=== PATIENT | female | born 1955 | race Hispanic/Latino ===

== ENCOUNTER 2020-09-29 16:19 | Emergency (ER) | payer MEDICAID ==
[2020-09-29] MEDS ORDERED: HYDROcodone/ACETAMINOPHEN 5-325 MG TAB PO ONE (16:47)
[2020-09-29] MEDS ORDERED: TETANUS,DIPH,PERTUSS(ACELL) VACCINE 0.5 ML SYRINGE IM ONE (16:52)
[2020-09-29] MEDS ORDERED: SODIUM CHLORIDE 0.9% 1000 ML 1,000 ML IV ONE ×2 (16:52→19:57)
--- NOTE | 2020-09-29 16:52 | Emergency Department Report ---
ED Alcohol HPI - General Stated Complaint: FALL Time Seen by Provider: 09/29/20 16:46 Source: patient, EMS, old records reviewed Mode of arrival: Ambulatory Limitations: No Limitations - History of Present Illness Initial Comments: CC: recurrent falls HPI: This is a 65 yo female with hx of anemia, chronic pain and alcohol dependence who presents with recurrent falls and skin tears due to alcohol intoxication. Roommate of patient called EMS. Patient states that she is hung ry. She also feels that she needs a blood transfusion. She has multiple skin tears on forearm. Bleeding controlled with bandage. Patient also has history of COPD nicotine dependence, hypertension, according to myocardial perfusion scan performed 2013, patient had ejection fraction 63% with normal left ventricular systolic function MD Complaint: alcohol intoxication Last Drink: just [employer] Chronic Alcohol Use: Yes Recent Trauma: Yes Associated Symptoms: denies other symptoms Treatments Prior to Arrival: other (EMS transport, bandage) - Related Data Home Medications Medication Instructions Recorded Confirmed Last Taken hydrOXYzine PAMOATE (NF) [Vistaril 25 mg PO BID 09/17/13 08/01/14 09/17/13 (Nf)] Previous Rx's Medication Instructions Recorded Last Taken Type Albuterol Mdi (or & Nicu Only) 2 puff IH QID PRN 30 Days 08/02/14 Unknown Rx [ProAir HFA Inhaler] inhalation Prednisone [Prednisone 10 mg 10 mg PO .TAPER #1 tab.ds.pk 08/02/14 Unknown Rx (6-Day Pack, 21 Tabs)] levoFLOXacin [Levaquin] 750 mg PO QDAY #3 tablet 08/02/14 Unknown Rx Allergies Allergy/AdvReac Type Severity Reaction Status Date / Time ibuprofen [From Motrin] Allergy Rash Verified 09/17/13 17:44 Penicillins Allergy Rash Verified 09/17/13 17:44 sulfamethoxazole Allergy Rash Verified 08/01/14 03:12 [From Bactrim] trimethoprim [From Bactrim] Allergy Rash Verified 08/01/14 03:12 ED Review of Systems ROS: Stated complaint: FALL Other details as noted in HPI Comment: All other systems reviewed and negative Constitutional: denies: fever, malaise Respiratory: denies: cough, shortness of breath Gastrointestinal: denies: abdominal pain, nausea, vomiting Skin: lesions ED Past Medical Hx - Past Medical History Previous Medical History?: Yes Hx Hypertension: Yes Hx Heart Attack/AMI: No Hx Congestive Heart Failure: No Hx Diabetes: Yes Hx Deep Vein Thrombosis: No Hx Pulmonary Embolism: No Hx Liver Disease: No Hx Renal Disease: No Hx Sickle Cell Disease: No Hx Arthritis: No Hx Seizures: No Hx Kidney Stones: No Hx Psychiatric Treatment: Yes Hx Asthma: Yes Hx COPD: Yes Hx Tuberculosis: No Hx Dementia: No Hx HIV: No Additional medical history: History of PUD. History of anemia on recent old records. History of hyponatremia on recent old records - Surgical History Past Surgical History?: Yes Hx Coronary Stent: No Hx Open Heart Surgery: No Hx Pacemaker: No Hx Internal Defibrillator: No Hx Cholecystectomy: No Hx Appendectomy: No Hx Breast Surgery: No Additional Surgical History: lt knee surgery,rt foot surgery,TONSILECTOMY - Social History Smoking Status: Current Every Day Smoker Substance Use Type: Alcohol - Medications Home Medications: Home Medications Medication Instructions Recorded Confirmed Last Taken Type hydrOXYzine PAMOATE (NF) [Vistaril 25 mg PO BID 09/17/13 08/01/14 09/17/13 History (Nf)] Albuterol Mdi (or & Nicu Only) 2 puff IH QID PRN 30 Days 08/02/14 Unknown Rx [ProAir HFA Inhaler] inhalation Prednisone [Prednisone 10 mg 10 mg PO .TAPER #1 tab.ds.pk 08/02/14 Unknown Rx (6-Day Pack, 21 Tabs)] levoFLOXacin [Levaquin] 750 mg PO QDAY #3 tablet 08/02/14 Unknown Rx ED Physical Exam - General Limitations: No Limitations General appearance: alert, appears intoxicated, other (staggering gait) - Head Head exam: Present: atraumatic, normocephalic - Eye Eye exam: Present: normal appearance. Absent: scleral icterus, conjunctival injection - ENT ENT exam: Present: mucous membranes moist - Neck Neck exam: Present: normal inspection, full ROM - Respiratory Respiratory exam: Present: normal lung sounds bilaterally. Absent: respiratory distress, wheezes, rales, rhonchi - Cardiovascular Cardiovascular Exam: Present: regular rate, normal rhythm, normal heart sounds. Absent: systolic murmur, diastolic murmur, rubs, gallop - GI/Abdominal GI/Abdominal exam: Present: soft, normal bowel sounds. Absent: distended, tenderness, guarding, rebound - Extremities Exam Extremities exam: Present: normal inspection - Neurological Exam Neurological exam: Present: alert, oriented X3 - Psychiatric Psychiatric exam: Present: other (labile mood, slightly agitated, semi- cooperative) - Skin Skin exam: Present: warm, dry, normal color, other (several skin tears bilateral forearms). Absent: rash ED Course Vital Signs 09/29/20 09/29/20 09/29/20 17:32 19:35 23:00 Temperature 97.5 F L 97.7 F Pulse Rate 75 106 H Respiratory 18 18 18 Rate Blood Pressure 149/82 Blood Pressure 149/86 [Left] O2 Sat by Pulse 95 Oximetry ED Medical Decision Making - Lab Data Result diagrams: 09/29/20 16:47 09/29/20 16:47 - Medical Decision Making 1. Acute alcohol intoxication leading to recurrent falls: Blood alcohol level markedly elevated 0.33 at 18 hours observation patient is lucid alert. Patient has steady gait upon arrival in spite significant intoxication. 2. Multiple skin tears due to falls: Bandages were applied per nursing staff. Patient also received Tdap booster. chemistry otherwise unremarkable. CBC revealed mild leukopenia and anemia, possibly indicative of early liver disease. Patient given referral to outpatient medicine physician Critical care attestation.: If time is entered above; I have spent that time in minutes in the direct care of this critically ill patient, excluding procedure time. ED Disposition Clinical Impression: Alcohol intoxication, Skin avulsion Disposition: [id number] TO HOME OR SELFCARE Is pt being admited?: No Does the pt Need Aspirin: No Condition: Stable Instructions: Alcohol Abuse and Dependence Information, Adult Referrals: LUCIA BUENO MD [Staff Physician] - 3-5 Days
[2020-09-29 18:15] LABS: Basophils % (Auto) 1.1 % (0.0-1.8); Eosinophils % (Auto) 0.8 % (0.0-4.3); Hemoglobin 9.2 gm/dl (10.1-14.3); Lymphocytes % (Auto) 35.9 % (13.4-35.0); Mean Corpuscular HGB Conc 32 % (30-34); Mean Corpuscular Volume 87 fl (79-97); Monocytes # (Auto) 0.4 K/mm3 (0.0-0.8); Monocytes % (Auto) 15.4 % (0.0-7.3); Platelet Count 250 K/mm3 (140-440); Red Blood Count 3.32 M/mm3 (3.65-5.03); Red Cell Distribution Width 18.8 % (13.2-15.2)
[2020-09-29 18:27] LABS: BUN/Creatinine Ratio 18; Blood Urea Nitrogen 16 mg/dL (7-17); Calcium 8.9 mg/dL (8.4-10.2); Hemolysis Index 13
[2020-09-30 04:23] VITALS: BP 146/98
== END 2020-10-01 12:09 | disposition home or self-care (01) ==
LOC: ED 16:19
DX: T14.8XXA Other injury of unspecified body region, initial encounter (principal); F10.129 Alcohol abuse with intoxication, unspecified; I10 Essential (primary) hypertension; E11.9 Type 2 diabetes mellitus without complications; J45.909 Unspecified asthma, uncomplicated; F17.200 Nicotine dependence, unspecified, uncomplicated; Z79.899 Other long term (current) drug therapy; X58.XXXA Exposure to other specified factors, initial encounter; Y93.89 Activity, other specified; Y92.89 Other specified places as the place of occurrence of the external cause; Y99.8 Other external cause status
CPT/HCPCS: 36415; 80048; 85025; 90471; 90715; 96360; 96361; 99285; J7030; 80320; G0480

== ENCOUNTER 2020-11-05 03:03 | Emergency (ER) | payer MEDICAID ==
[2020-11-05 03:12] VITALS: BP 154/95
[2020-11-05] MEDS ORDERED: ACETAMINOPHEN 500 MG TAB PO ONE (04:55)
--- NOTE | 2020-11-05 05:08 | Emergency Department Report ---
ED General Adult HPI - General Chief complaint: Sore Throat Stated complaint: SORE THROAT Time Seen by Provider: 11/05/20 03:56 Source: patient, EMS Mode of arrival: Ambulatory Limitations: No Limitations - History of Present Illness Initial comments: Patient is a 65-year-old female who presents for sore throat x3 weeks. Patient denies fevers chills no nausea vomiting no dizziness no difficulty eating or swallowing. Patient states pain is described at 5/10 itchy scratchy symptoms are relieved by nothing tried symptoms are exacerbated by nothing. - Related Data Home Medications Medication Instructions Recorded Confirmed Last Taken hydrOXYzine PAMOATE (NF) [Vistaril 25 mg PO BID 09/17/13 08/01/14 09/17/13 (Nf)] Previous Rx's Medication Instructions Recorded Last Taken Type Albuterol Mdi (or & Nicu Only) 2 puff IH QID PRN 30 Days 08/02/14 Unknown Rx [ProAir HFA Inhaler] inhalation Prednisone [Prednisone 10 mg 10 mg PO .TAPER #1 tab.ds.pk 08/02/14 Unknown Rx (6-Day Pack, 21 Tabs)] levoFLOXacin [Levaquin] 750 mg PO QDAY #3 tablet 08/02/14 Unknown Rx Acetaminophen [Tylenol] 325 mg PO Q6H PRN #30 capsule 11/05/20 Unknown Rx Azithromycin [Zithromax TAB] 250 mg PO QDAY #5 tablet 11/05/20 Unknown Rx Allergies Allergy/AdvReac Type Severity Reaction Status Date / Time ibuprofen [From Motrin] Allergy Rash Verified 09/17/13 17:44 Penicillins Allergy Rash Verified 09/17/13 17:44 sulfamethoxazole Allergy Rash Verified 08/01/14 03:12 [From Bactrim] trimethoprim [From Bactrim] Allergy Rash Verified 08/01/14 03:12 ED Review of Systems ROS: Stated complaint: SORE THROAT Other details as noted in HPI Constitutional: denies: chills, fever Eyes: denies: eye pain, eye discharge, vision change ENT: throat pain, congestion Respiratory: denies: cough, shortness of breath, wheezing Cardiovascular: denies: chest pain, palpitations Endocrine: no symptoms reported Gastrointestinal: denies: abdominal pain, nausea, diarrhea Genitourinary: denies: urgency, dysuria, discharge Musculoskeletal: denies: back pain, joint swelling, arthralgia Skin: denies: rash, lesions Neurological: denies: headache, weakness, paresthesias Psychiatric: denies: anxiety, depression Hematological/Lymphatic: as per HPI ED Past Medical Hx - Past Medical History Previous Medical History?: Yes Hx Hypertension: Yes Hx Heart Attack/AMI: No Hx Congestive Heart Failure: No Hx Diabetes: Yes Hx Deep Vein Thrombosis: No Hx Pulmonary Embolism: No Hx Liver Disease: No Hx Renal Disease: No Hx Sickle Cell Disease: Yes Hx Arthritis: No Hx Seizures: No Hx Kidney Stones: No Hx Psychiatric Treatment: Yes Hx Asthma: Yes Hx COPD: Yes Hx Tuberculosis: No Hx Dementia: No Hx HIV: No Additional medical history: History of PUD. History of anemia on recent old records. History of hyponatremia on recent old records - Surgical History Past Surgical History?: Yes Hx Coronary Stent: No Hx Open Heart Surgery: No Hx Pacemaker: No Hx Internal Defibrillator: No Hx Cholecystectomy: No Hx Appendectomy: No Hx Breast Surgery: No Additional Surgical History: lt knee surgery,rt foot surgery,TONSILECTOMY - Social History Smoking Status: Current Every Day Smoker Substance Use Type: Alcohol - Medications Home Medications: Home Medications Medication Instructions Recorded Confirmed Last Taken Type hydrOXYzine PAMOATE (NF) [Vistaril 25 mg PO BID 09/17/13 08/01/14 09/17/13 History (Nf)] Albuterol Mdi (or & Nicu Only) 2 puff IH QID PRN 30 Days 08/02/14 Unknown Rx [ProAir HFA Inhaler] inhalation Prednisone [Prednisone 10 mg 10 mg PO .TAPER #1 tab.ds.pk 08/02/14 Unknown Rx (6-Day Pack, 21 Tabs)] levoFLOXacin [Levaquin] 750 mg PO QDAY #3 tablet 08/02/14 Unknown Rx Acetaminophen [Tylenol] 325 mg PO Q6H PRN #30 capsule 11/05/20 Unknown Rx Azithromycin [Zithromax TAB] 250 mg PO QDAY #5 tablet 11/05/20 Unknown Rx ED Physical Exam - General Limitations: No Limitations General appearance: alert, in no apparent distress - Head Head exam: Present: atraumatic, normocephalic - Eye Eye exam: Present: normal appearance, PERRL, EOMI Pupils: Present: normal accommodation - ENT ENT exam: Present: normal orophraynx, mucous membranes moist, TM's normal bilaterally, normal external ear exam - Expanded ENT Exam Expanded Ear exam: Present: normal external inspection Mouth exam: Present: normal external inspection Teeth exam: Present: normal inspection Throat exam: Negative: tonsillar erythema, tonsillomegaly, tonsillar exudate, R peritonsillar mass, L peritonsillar mass - Neck Neck exam: Present: normal inspection, full ROM, lymphadenopathy. Absent: tenderness, meningismus, thyromegaly - Expanded Neck Exam Expanded Neck exam: Present: tenderness. Absent: midline deformity - Respiratory Respiratory exam: Present: normal lung sounds bilaterally. Absent: respiratory distress, wheezes, stridor, chest wall tenderness - Cardiovascular Cardiovascular Exam: Present: regular rate, normal rhythm, normal heart sounds. Absent: systolic murmur, diastolic murmur, rubs, gallop - GI/Abdominal GI/Abdominal exam: Present: soft, normal bowel sounds - Rectal Rectal exam: Present: deferred - Extremities Exam Extremities exam: Present: normal inspection, full ROM, normal capillary refill. Absent: tenderness - Back Exam Back exam: Present: normal inspection - Neurological Exam Neurological exam: Present: alert, oriented X3, CN II-XII intact, normal gait - Psychiatric Psychiatric exam: Present: normal affect, normal mood - Skin Skin exam: Present: warm, dry, intact, normal color. Absent: rash ED Course Vital Signs 11/05/20 03:11 Temperature 97.8 F Pulse Rate 77 Respiratory 16 Rate Blood Pressure 154/95 [Right] O2 Sat by Pulse 98 Oximetry ED Medical Decision Making - Medical Decision Making take medications as prescribed , return to [facility] if symptoms worsen. Critical care attestation.: If time is entered above; I have spent that time in minutes in the direct care of this critically ill patient, excluding procedure time. ED Disposition Clinical Impression: Pharyngitis Qualifiers: Pharyngitis/tonsillitis etiology: unspecified etiology Qualified Code(s): J02.9 - Acute pharyngitis, unspecified URI (upper respiratory infection) Qualifiers: URI type: unspecified URI Qualified Code(s): J06.9 - Acute upper respiratory infection, unspecified Disposition: TO HOME OR SELFCARE Is pt being admited?: No Does the pt Need Aspirin: No Condition: Stable Instructions: Sore Throat, [id number] Additional Instructions: take medications as prescribed, follow up with your doctor in 2-3 days. return to emergency if symptoms worsen Prescriptions: Acetaminophen [Tylenol] 325 mg PO Q6H PRN #30 capsule PRN Reason: Pain , Severe (7-10) Azithromycin [Zithromax TAB] 250 mg PO QDAY #5 tablet Referrals: BLACK CONTRERAS MD [Staff Physician] - 3-5 Days Time of Disposition: 05:22
== END 2020-11-05 05:34 | disposition home or self-care (01) ==
LOC: ED 03:03
DX: J02.9 Acute pharyngitis, unspecified (principal); N39.0 Urinary tract infection, site not specified; I10 Essential (primary) hypertension; J44.9 Chronic obstructive pulmonary disease, unspecified; F17.200 Nicotine dependence, unspecified, uncomplicated; Z79.899 Other long term (current) drug therapy; Z88.0 Allergy status to penicillin; Z88.1 Allergy status to other antibiotic agents; Z88.8 Allergy status to other drugs, medicaments and biological substances
CPT/HCPCS: 99283

== ENCOUNTER 2021-01-01 00:25 | Emergency (ER) | payer MEDICAID ==
[2021-01-01 01:47] LABS: Basophils % (Auto) 0.8 % (0.0-1.8); Eosinophils % (Auto) 0.7 % (0.0-4.3); Hematocrit 25.8 % (30.3-42.9); Hemoglobin 8.3 gm/dl (10.1-14.3); Lymphocytes # (Auto) 1.5 K/mm3 (1.2-5.4); Lymphocytes % (Auto) 23.6 % (13.4-35.0); Mean Corpuscular HGB Conc 32 % (30-34); Mean Corpuscular Volume 85 fl (79-97); Monocytes # (Auto) 0.8 K/mm3 (0.0-0.8); Monocytes % (Auto) 12.6 % (0.0-7.3); Platelet Count 305 K/mm3 (140-440); Red Blood Count 3.03 M/mm3 (3.65-5.03); Red Cell Distribution Width 19.9 % (13.2-15.2)
[2021-01-01 02:09] LABS: Alanine Aminotransferase 7 units/L (7-56); BUN/Creatinine Ratio 14; Blood Urea Nitrogen 13 mg/dL (7-17); Hemolysis Index 0
[2021-01-01] MEDS ORDERED: THIAMINE 100 MG, FOLIC ACID 1 MG, MULTIPLE VITAMIN INJ, ADULT 10 ML in SODIUM CHLORIDE ... IV ONE (04:17)
[2021-01-01] MEDS ORDERED: SODIUM CHLORIDE 0.9% 1000 ML 1,000 ML IV ONE (04:17)
--- NOTE | 2021-01-01 04:18 | Emergency Department Report ---
ED General Adult HPI - General Chief complaint: Abdominal Pain Stated complaint: DIZZINESS/FALL Time Seen by Provider: 01/01/21 04:06 Source: patient, EMS Mode of arrival: Wheelchair Limitations: Physical Limitation, Other - History of Present Illness Initial comments: Patient is a 65-year-old female that presents emergency room with complaints of dizziness and fall. Patient states that she fell and hit her head. Patient states she sustained abrasion to her head and hands. Patient denies pain to her hand. Patient states she does not have a headache. Patient states she been drinking alcohol. Patient states she started drinking at 9 AM today. Patient states she is not intoxicated. Patient states she slipped down the steps because of loose bolts and handrails. Patient also complains of a mass on her right neck that is not enlarging. Pat ient states the mass is tender to touch. Patient states is been getting bigger. Patient states it has been there for about 4 - 5 weeks. Patient denies fever and chills. Patient denies sore throat. Patient denies nausea vomiting. Patient denies abdominal pain. Patient states he does not have any abdominal pain at this time. Patient states when she arrived here she had some abdominal pain in the epigastric region but that has resolved. Patient denies recent travel. Patient denies recent international travel. Patient denies exposure to the novel coronavirus. Patient denies sick contacts. Patient denies fever and chills. Patient denies cough. Patient denies diarrhea. Patient denies coming in contact with anybody with symptoms of the novel coronavirus. - Related Data Home Medications Medication Instructions Recorded Confirmed Last Taken hydrOXYzine PAMOATE (NF) [Vistaril 25 mg PO BID 09/17/13 08/01/14 09/17/13 (Nf)] Previous Rx's Medication Instructions Recorded Last Taken Type Albuterol Mdi (or & Nicu Only) 2 puff IH QID PRN 30 Days 08/02/14 Unknown Rx [ProAir HFA Inhaler] inhalation levoFLOXacin [Levaquin] 750 mg PO QDAY #3 tablet 08/02/14 Unknown Rx Acetaminophen [Tylenol] 325 mg PO Q6H PRN #30 capsule 11/05/20 Unknown Rx Azithromycin [Zithromax TAB] 250 mg PO QDAY #5 tablet 11/05/20 Unknown Rx Doxycycline Hyclate [Doxycycline 100 mg PO Q12HR 10 Days #20 tab 01/01/21 U nknown Rx Hyclate TAB] Prednisone [predniSONE 10 mg 10 mg PO .TAPER #1 tab.ds.pk 01/01/21 Unknown Rx (6-Day Pack, 21 Tabs)] Allergies Allergy/AdvReac Type Severity Reaction Status Date / Time ibuprofen [From Motrin] Allergy Rash Verified 09/17/13 17:44 Penicillins Allergy Rash Verified 09/17/13 17:44 sulfamethoxazole Allergy Rash Verified 08/01/14 03:12 [From Bactrim] trimethoprim [From Bactrim] Allergy Rash Verified 08/01/14 03:12 ED Review of Systems ROS: Stated complaint: DIZZINESS/FALL Other details as noted in HPI Constitutional: denies: chills, fever Eyes: denies: eye pain, eye discharge, vision change ENT: denies: ear pain, throat pain Respiratory: denies: cough, shortness of breath, wheezing Cardiovascular: denies: chest pain, palpitations Endocrine: no symptoms reported Gastrointestinal: as per HPI. denies: nausea, vomiting, diarrhea Genitourinary: denies: urgency, dysuria, discharge Musculoskeletal: denies: back pain, joint swelling, arthralgia Skin: denies: rash, lesions Neurological: denies: headache, weakness, paresthesias Psychiatric: denies: anxiety, depression Hematological/Lymphatic: denies: easy bleeding, easy bruising ED Past Medical Hx - Past Medical History Previous Medical History?: Yes Hx Hypertension: Yes Hx Heart Attack/AMI: No Hx Congestive Heart Failure: No Hx Diabetes: Yes Hx Deep Vein Thrombosis: No Hx Pulmonary Embolism: No Hx Liver Disease: No Hx Renal Disease: No Hx Sickle Cell Disease: Yes Hx Arthritis: No Hx Seizures: No Hx Kidney Stones: No Hx Psychiatric Treatment: Yes Hx Asthma: Yes Hx COPD: Yes Hx Tuberculosis: No Hx Dementia: No Hx HIV: No Additional medical history: History of PUD. History of anemia on recent old records. History of hyponatremia on recent old records - Surgical History Past Surgical History?: Yes Hx Coronary Stent: No Hx Open Heart Surgery: No Hx Pacemaker: No Hx Internal Defibrillator: No Hx Cholecystectomy: No Hx Appendectomy: No Hx Breast Surgery: No Additional Surgical History: lt knee surgery,rt foot surgery,TONSILECTOMY - Family History Family history: no significant - Social History Smoking Status: Current Every Day Smoker Substance Use Type: Alcohol - Medications Home Medications: Home Medications Medication Instructions Recorded Confirmed Last Taken Type hydrOXYzine PAMOATE (NF) [Vistaril 25 mg PO BID 09/17/13 08/01/14 09/17/13 History (Nf)] Albuterol Mdi (or & Nicu Only) 2 puff IH QID PRN 30 Days 08/02/14 Unknown Rx [ProAir HFA Inhaler] inhalation levoFLOXacin [Levaquin] 750 mg PO QDAY #3 tablet 08/02/14 Unknown Rx Acetaminophen [Tylenol] 325 mg PO Q6H PRN #30 capsule 11/05/20 Unknown Rx Azithromycin [Zithromax TAB] 250 mg PO QDAY #5 tablet 11/05/20 Unknown Rx Doxycycline Hyclate [Doxycycline 100 mg PO Q12HR 10 Days #20 tab 01/01/21 Unknown Rx Hyclate TAB] Prednisone [predniSONE 10 mg 10 mg PO .TAPER #1 tab.ds.pk 01/01/21 Unknown Rx (6-Day Pack, 21 Tabs)] ED Physical Exam - General Limitations: Physical Limitation, Other General appearance: alert, in no apparent distress - Head Head exam: Present: normocephalic, other (Abrasions to the left eyebrow.) - Eye Eye exam: Present: normal appearance, PERRL Pupils: Present: normal accommodation - ENT ENT exam: Present: mucous membranes moist - Neck Neck exam: Present: normal inspection, full ROM, lymphadenopathy (Right lymphadenopathy that is nontender). Absent: tenderness, meningismus, thyromegaly - Respiratory Respiratory exam: Present: normal lung sounds bilaterally. Absent: respiratory distress, wheezes, rales - Cardiovascular Cardiovascular Exam: Present: regular rate, normal rhythm. Absent: systolic murmur, diastolic murmur, rubs, gallop - GI/Abdominal GI/Abdominal exam: Present: soft, normal bowel sounds. Absent: distended, tenderness, guarding - Extremities Exam Extremities exam: Present: normal inspection - Back Exam Back exam: Present: normal inspection - Neurological Exam Neurological exam: Present: alert, oriented X3 - Psychiatric Psychiatric exam: Present: normal affect, normal mood - Skin Skin exam: Present: warm, dry, intact, normal color. Absent: rash ED Course Vital Signs 01/01/21 01/01/21 00:38 09:10 Temperature 98.2 F Pulse Rate 77 72 Respiratory 16 18 Rate Blood Pressure 124/80 Blood Pressure 121/71 [Left] O2 Sat by Pulse 97 96 Oximetry - Reevaluation(s) Reevaluation #1: I discussed all results and clinical findings with patient. I discussed plan of care with patient. Patient agrees with plan of care. Patient is stable for discharge. Patient will be discharged home. Patient given discharge instructions. Patient voiced understanding of discharge instructions. Patient is alert and oriented x4. Patient answering questions appropriately. Patient is clinically sober. 01/01/21 06:04 ED Medical Decision Making - Lab Data Result diagrams: 01/01/21 01:06 01/01/21 01:06 - Radiology Data Radiology results: report reviewed Left sacral age indeterminate but possibly chronic nasal bone fracture. INDICATION: RIGHT sided neck mass. Trauma. TECHNIQUE: CT head, face, and hepatic without contrast. All CT scans at this location are performed using CT dose reduction for ALARA by means of automated exposure control. COMPARISON: None. FINDINGS: Head: Intracranial: Coburn-white matter differentiation is maintained. No intracranial hemorrhage. No extra axial collection.. No hydrocephalus. No herniation. Calvarium: No acute fracture. Face: Facial bones: Age-indeterminate mildly displaced nasal bone fracture.. Facial bones are intact without fracture. Mandibular condyles are well-seated within the glenoid fossa of the temporal mandibular joint. Sinuses: Paranasal sinuses and mastoid air cells are essentially clear. Orbits: Globes are intact. Additional findings:No other significant abnormality. Neck: Large 4.8 cm lesion which demonstrated central hypoattenuation beginning at the angle of the mandible and extending inferiorly deep to the external jugular vein and sternocleidomastoid muscle. This could represent necrotic lymphadenopathy or abscess. No other lymphadenopathy is visualized. Bones: No acute fracture. Severe spondylosis. Reversal the normal lordosis with apex at C5 with multilevel degenerative grade 1 listhesis. No traumatic listhesis. Severe emphysema of the lungs with apical scarring. Sebaceous cyst seen along the posterior neck. IMPRESSION: 1. Large right sided neck mass which could represent necrotic lymphadenopathy or abscess (infected brachial cleft cyst). Correlate clinically. Can consider further evaluation with ultrasound or postcontrast examination is indicated. 2. Severe emphysema of the lungs. 3. No acute intracranial abnormality. 4. Age indeterminate with suspected remote nasal bone fracture. - Medical Decision Making Patient is a 65-year-old female presents emergency room with complaints of a fall, head abrasion, hand abrasion, a right neck mass. Patient had a CT of the head, CT of the facial bones, CT of the soft tissue neck. Patient CT shows no acute findings in the head, no acute fractures of the facial bones. The soft tissue neck CT showed lymphadenopathy versus an abscess. Patient's neck exam shows nontender lymphadenopathy and no redness of the skin and no fluctuance to the area. Patient had labs done which were essentially unremarkable. Patient does have an elevated alcohol. Patient is clinically sober and is of sound mind about. Patient stable for discharge. Patient be discharged home. Patient not require further emergency medical services or inpatient services. Patient giv en discharge instructions. Patient discharged home. - Differential Diagnosis Fall, head injury, facial trauma, neck mass, acute intoxication Critical care attestation.: If time is entered above; I have spent that time in minutes in the direct care of this critically ill patient, excluding procedure time. ED Disposition Clinical Impression: Cervical lymphadenopathy, Facial pain, Dizziness Fall Qualifiers: Encounter type: initial encounter Qualified Code(s): W19.XXXA - Unspecified fall, initial encounter Acute alcohol intoxication Qualifiers: Complication of substance-induced condition: uncomplicated Qualified Code(s): F10.920 - Alcohol use, unspecified with intoxication, uncomplicated Forehead abrasion Qualifiers: Encounter type: initial encounter Qualified Code(s): S00.81XA - Abrasion of other part of head, initial encounter Facial trauma Qualifiers: Encounter type: initial encounter Qualified Code(s): S09.93XA - Unspecified injury of face, initial encounter Anemia Qualifiers: Anemia type: unspecified type Qualified Code(s): D64.9 - Anemia, unspecified Disposition: DC-01 TO HOME OR SELFCARE Is pt being admited?: No Does the pt Need Aspirin: No Condition: Stable Instructions: General Headache Without Cause, Abrasion, [id number], Abdominal Pain (ED) Additional Instructions: Patient to follow-up with primary care in 2 to 3 days. Patient to follow-up with ENT in 2 to 3 days. Patient to rest. Patient to increase water. Patient to avoid alcohol use. Patient to take Tylenol or ibuprofen as needed for pain. Patient to take meds as directed. Patient to return to the ER if condition worsens, changes or new symptoms arise. Prescriptions: Doxycycline Hyclate [Doxycycline Hyclate TAB] 100 mg PO Q12HR 10 Days #20 tab Prednisone [predniSONE 10 mg (6-Day Pack, 21 Tabs)] 10 mg PO .TAPER #1 tab.ds.pk Referrals: RUTH ANN LOPEZ MD [Staff Physician] - 2-3 Days Time of Disposition: 06:09
--- NOTE | 2021-01-01 05:52 | Cat Scan Report ---
Left sacral age indeterminate but possibly chronic nasal bone fracture. INDICATION: RIGHT sided neck mass. Trauma. TECHNIQUE: CT head, face, and hepatic without contrast. All CT scans at this location are performed u sing CT dose reduction for ALARA by means of automated exposure control. COMPARISON: None. FINDINGS: Head: Intracranial: Coburn-white matter differentiation is maintained. No intracranial hemorrhage. No extra a xial collection.. No hydrocephalus. No herniation. Calvarium: No acute fracture. Face: Facial bones: Age-indeterminate mildly displaced nasal bone fracture.. Facial bones are intact withou t fracture. Mandibular condyles are well-seated within the glenoid fossa of the temporal mandibular j oint. Sinuses: Paranasal sinuses and mastoid air cells are essentially clear. Orbits: Globes are intact. Additional findings:No other significant abnormality. Neck: Large 4.8 cm lesion which demonstrated central hypoattenuation beginning at the angle of the mandible and extending inferiorly deep to the external jugular vein and sternocleidomastoid muscle. This coul d represent necrotic lymphadenopathy or abscess. No other lymphadenopathy is visualized. Bones: No acute fracture. Severe spondylosis. Reversal the normal lordosis with apex at C5 with multi level degenerative grade 1 listhesis. No traumatic listhesis. Severe emphysema of the lungs with apical scarring. Sebaceous cyst seen along the posterior neck. IMPRESSION: 1. Large right sided neck mass which could represent necrotic lymphadenopathy or abscess (infected br achial cleft cyst). Correlate clinically. Can consider further evaluation with ultrasound or postcont rast examination is indicated. 2. Severe emphysema of the lungs. 3. No acute intracranial abnormality. 4. Age indeterminate with suspected remote nasal bone fracture. Signer Name: Mk Patel MD Signed: 01/01/2021 5:48 AM Workstation Name: [id number]
[2021-01-01 09:11] VITALS: BP 121/71
== END 2021-01-01 10:00 | disposition home or self-care (01) ==
LOC: ED 00:25
DX: S00.81XA Abrasion of other part of head, initial encounter (principal); F10.129 Alcohol abuse with intoxication, unspecified; D64.9 Anemia, unspecified; R59.0 Localized enlarged lymph nodes; R42 Dizziness and giddiness; I10 Essential (primary) hypertension; E11.9 Type 2 diabetes mellitus without complications; J44.9 Chronic obstructive pulmonary disease, unspecified; F17.200 Nicotine dependence, unspecified, uncomplicated; Z90.89 Acquired absence of other organs; Z98.890 Other specified postprocedural states; Z79.899 Other long term (current) drug therapy; Z88.0 Allergy status to penicillin; Z88.8 Allergy status to other drugs, medicaments and biological substances; W19.XXXA Unspecified fall, initial encounter; Y93.89 Activity, other specified; Y92.89 Other specified places as the place of occurrence of the external cause; Y99.8 Other external cause status
CPT/HCPCS: 36415; 70450; 70486; 70490; 80053; 85025; 96360; 99284; J3411; J7030; 80320; G0480

== ENCOUNTER 2021-01-06 16:10 | Emergency (ER) | payer MEDICAID ==
[2021-01-06 18:29] VITALS: BP 144/88
--- NOTE | 2021-01-06 18:43 | Event Note ---
ED Screening Note ED Screening Note: Patient is a 65-year-old female who presents emergency room complaints of a right-sided neck mass that has been there for 2 months She states it is becoming more painful She is able to tolerate liquids She had a CT without contrast which showed necrotic lymphadenopathy versus abscess She did not follow-up discussed with Dr. Xiong, ER attending who advised to order CT neck with contrast This initial assessment/diagnostic orders/clinical plan/treatment(s) is/are subject to change based on patients health status, clinical progression and re- assessment by fellow clinical providers in the ED. Further treatment and workup at subsequent clinical providers discretion. Patient/guardian urged not to elope from the ED as their condition may be serious if not clinically assessed and managed. Initial orders include: Labs, CT
[2021-01-06 19:37] LABS: Basophils % (Auto) 0.1 % (0.0-1.8); Eosinophils % (Auto) 0.1 % (0.0-4.3); Hematocrit 28.1 % (30.3-42.9); Hemoglobin 9.1 gm/dl (10.1-14.3); Lymphocytes # (Auto) 1.3 K/mm3 (1.2-5.4); Lymphocytes % (Auto) 15.7 % (13.4-35.0); Mean Corpuscular HGB Conc 33 % (30-34); Mean Corpuscular Volume 86 fl (79-97); Monocytes # (Auto) 0.7 K/mm3 (0.0-0.8); Monocytes % (Auto) 8.3 % (0.0-7.3); Platelet Count 292 K/mm3 (140-440); Red Blood Count 3.26 M/mm3 (3.65-5.03); Red Cell Distribution Width 19.7 % (13.2-15.2)
[2021-01-06 19:53] LABS: Albumin 3.7 g/dL (3.9-5)
--- NOTE | 2021-01-06 20:45 | Cat Scan Report ---
CT neck w con INDICATION / CLINICAL INFORMATION: 65 years Female; right neck mass,100ML OF OMNI 300 GIVEN, per patient neck mass notice for 2 months n ow. TECHNIQUE: Contiguous thin cut axial images obtained through the neck following IV contrast. Sagittal and dennison l reconstructions performed by the technologist. All CT scans at this location are performed using CT dose reduction for ALARA by means of automated exposure control. COMPARISON: The study is compared to the previous CT of 01/01/2021. FINDINGS: There is a persistent large mass within the right neck centered at the level the hyoid bone measuring approximately 4.4 cm transverse by 5.0 cm AP by 5.1 cm sagittally and greatest dimensions. The contrast on the current study demonstrates to better advantage the extensive a central necrosis and this finding would be most consistent with coalescence of adenopathythere is associated displacem ent of the submandibular gland anteriorly, the sternocleidomastoid muscle laterally and the carotid s mignon structures medially. MUCOSAL SPACE: The postcontrast imaging also demonstrates to better advantage extensive mass involvin g right supraglottic soft tissues which involves the right epiglottis and encroaches on the anterior commissure. There is irregular effacement of the right piriform sinus and vallecula. There is also ex tension along the posterior laryngeal soft tissues. The nodular mass extends to the level the false v ocal cords. No subglottic extension is appreciated. LYMPH NODES: As above with extensive necrotic right-sided adenopathy at. Otherwise I, there are a few scattered smaller nodes within the remaining spaces of the neck. SALIVARY GLANDS: The visualized parotid glands demonstrate fairly symmetric attenuation. The above ad enopathy abuts the inferior margin of the right parotid gland with milder inflammatory changes at. As noted above, there is also mild displacement of the right submandibular gland. There is no sialolith iasis. THYROID GLAND: Unremarkable. PARANASAL SINUSES: Visualized paranasal sinuses and mastoid air cells are essentially clear. SPINE: There is reversal of the cervical lordosis with multilevel advanced degenerative the disc ventura ges. VASCULAR STRUCTURES: There is again note of advanced emphysematous changes of the visualized upper jamey ngs. IMPRESSION: 1. Additional postcontrast imaging demonstrates to better advantage an infiltrative lesion involving the supraglottic soft tissues, greater on the right and most consistent with carcinoma as detailed ab ove. 2. The persistent right neck mass most likely represents associated coalescing necrotic adenopathy an d also correlates with the prior study of 01/01/2021. Signer Name: Oh Painter MD Signed: 01/06/2021 8:41 PM Workstation Name: [id number]
--- NOTE | 2021-01-06 20:48 | Emergency Department Report ---
ED Neck Pain/Injury HPI - General Chief Complaint: Neck Pain/Injury Stated Complaint: LEG PAIN Time Seen by Provider: 01/06/21 18:25 Mode of arrival: Ambulatory Limitations: No Limitations - History of Present Illness Initial Comments: 65-year-old female smoker with past medical history of COPD presents emergency department complaining of a 1+ month history of right-sided neck swelling and pain with associated change in voice, worsening of the dysphagia, pain, swelling, fever sensation, night sweats and reported weight loss of unknown etiology. She was seen and evaluated in the emergency department about a week ago where a noncontrast CT scan was obtained of her right neck showing a possible abscess versus other and and inflammatory change. She states she has no significant/malignant history to her to her knowledge but returns today for reevaluation. She is evaluated by my colleague osmany who discussed the case with attending Dr. Gerardo Xiong and assessed contrasted CT scan was obtained and results are still pending. -: Gradual Radiation: right lateral Severity: mild Quality: dull Consistency: constant Improves With: none Worsens With: none, movement of neck Context: unknown Associated Symptoms: none - Related Data Home Medications Medication Instructions Recorded Confirmed Last Taken hydrOXYzine PAMOATE (NF) [Vistaril 25 mg PO BID 09/17/13 08/01/14 09/17/13 (Nf)] Previous Rx's Medication Instructions Recorded Last Taken Type Albuterol Mdi (or & Nicu Only) 2 puff IH QID PRN 30 Days 08/02/14 Unknown Rx [ProAir HFA Inhaler] inhalation levoFLOXacin [Levaquin] 750 mg PO QDAY #3 tablet 08/02/14 Unknown Rx Acetaminophen [Tylenol] 325 mg PO Q6H PRN #30 capsule 11/05/20 Unknown Rx Azithromycin [Zithromax TAB] 250 mg PO QDAY #5 tablet 11/05/20 Unknown Rx Doxycycline Hyclate [Doxycycline 100 mg PO Q12HR 10 Days #20 tab 01/01/21 Unknown Rx Hyclate TAB] Prednisone [predniSONE 10 mg 10 mg PO .TAPER #1 tab.ds.pk 01/01/21 Unknown Rx (6-Day Pack, 21 Tabs)] Acetaminophen/Codeine [Tylenol 1 tab PO Q6H PRN #20 tab 01/06/21 Unknown Rx /Codeine # 3 tab] Allergies Allergy/AdvReac Type Severity Reaction Status Date / Time ibuprofen [From Motrin] Allergy Rash Verified 01/06/21 18:28 Penicillins Allergy Rash Verified 01/06/21 18:28 sulfamethoxazole Allergy Rash Verified 01/06/21 18:28 [From Bactrim] trimethoprim [From Bactrim] Allergy Rash Verified 01/06/21 18:28 ED Review of Systems ROS: Stated complaint: LEG PAIN Other details as noted in HPI Comment: All other systems reviewed and negative ED Past Medical Hx - Past Medical History Hx Hypertension: Yes Hx Heart Attack/AMI: No Hx Congestive Heart Failure: No Hx Diabetes: Yes Hx Deep Vein Thrombosis: No Hx Pulmonary Embolism: No Hx Liver Disease: No Hx Renal Disease: No Hx Sickle Cell Disease: Yes Hx Arthritis: No Hx Seizures: No Hx Kidney Stones: No Hx Psychiatric Treatment: Yes Hx Asthma: Yes Hx COPD: Yes Hx Tuberculosis: No Hx Dementia: No Hx HIV: No Additional medical history: History of PUD. History of anemia on recent old records. History of hyponatremia on recent old records - Surgical History Hx Coronary Stent: No Hx Open Heart Surgery: No Hx Pacemaker: No Hx Internal Defibrillator: No Hx Cholecystectomy: No Hx Appendectomy: No Hx Breast Surgery: No Additional Surgical History: lt knee surgery,rt foot surgery,TONSILECTOMY - Social History Smoking Status: Never Smoker Substance Use Type: None - Medications Home Medications: Home Medications Medication Instructions Recorded Confirmed Last Taken Type hydrOXYzine PAMOATE (NF) [Vistaril 25 mg PO BID 09/17/13 08/01/14 09/17/13 History (Nf)] Albuterol Mdi (or & Nicu Only) 2 puff IH QID PRN 30 Days 08/02/14 Unknown Rx [ProAir HFA Inhaler] inhalation levoFLOXacin [Levaquin] 750 mg PO QDAY #3 tablet 08/02/14 Unknown Rx Acetaminophen [Tylenol] 325 mg PO Q6H PRN #30 capsule 11/05/20 Unknown Rx Azithromycin [Zithromax TAB] 250 mg PO QDAY #5 tablet 11/05/20 Unknown Rx Doxycycline Hyclate [Doxycycline 100 mg PO Q12HR 10 Days #20 tab 01/01/21 Unknown Rx Hyclate TAB] Prednisone [predniSONE 10 mg 10 mg PO .TAPER #1 tab.ds.pk 01/01/21 Unknown Rx (6-Day Pack, 21 Tabs)] Acetaminophen/Codeine [Tylenol 1 tab PO Q6H PRN #20 tab 01/06/21 Unknown Rx /Codeine # 3 tab] ED Physical Exam - General Limitations: No Limitations General appearance: alert, in no apparent distress - Head Head exam: Present: atraumatic, normocephalic - Eye Eye exam: Present: normal appearance, PERRL - ENT ENT exam: Present: mucous membranes moist - Neck Neck exam: Present: normal inspection, tenderness, other - Expanded Neck Exam Expanded Neck exam: Present: tenderness 1 - Large circular tender neck mass - Respiratory Respiratory exam: Present: normal lung sounds bilaterally. Absent: respiratory distress, wheezes, rales, rhonchi - Cardiovascular Cardiovascular Exam: Present: regular rate, normal rhythm. Absent: systolic murmur, diastolic murmur, rubs, gallop - GI/Abdominal GI/Abdominal exam: Present: soft, normal bowel sounds - Extremities Exam Extremities exam: Present: normal inspection - Back Exam Back exam: Present: normal inspection - Neurological Exam Neurological exam: Present: alert, oriented X3 - Psychiatric Psychiatric exam: Present: normal affect, normal mood - Skin Skin exam: Present: warm, dry, intact, normal color. Absent: rash ED Course Vital Signs 01/06/21 18:21 Temperature 97.7 F Pulse Rate 85 Respiratory 20 Rate Blood Pressure 144/88 O2 Sat by Pulse 100 Oximetry ED Medical Decision Making - Lab Data Result diagrams: 01/06/21 18:54 01/06/21 18:54 - Radiology Data Radiology results: report reviewed [address] [place] [address] Cat Scan Report Signed Patient: UTE SIFUENTES MR#: [id number] : 1955 Acct:[id number] Age/Sex: 65 / F ADM Date: 01/06/21 Loc: ED Attending Dr: Ordering Physician: JOANNE CESPEDES Date of Service: 01/06/21 Procedure(s): CT neck w con Accession Number(s): [id number] cc: JOANNE CESPEDES CT neck w con INDICATION / CLINICAL INFORMATION: 65 years Female; right neck mass,100ML OF OMNI 300 GIVEN, per patient neck mass notice for 2 months now. TECHNIQUE: Contiguous thin cut axial images obtained through the neck following IV contrast. Sagittal and coronal reconstructions performed by the technologist. All CT scans at this location are performed using CT dose reduction for ALARA by means of automated exposure control. COMPARISON: The study is compared to the previous CT of 01/01/2021. FINDINGS: There is a persistent large mass within the right neck centered at the level the hyoid bone measuring approximately 4.4 cm transverse by 5.0 cm AP by 5.1 cm sagittally and greatest dimensions. The contrast on the current study demonstrates to better advantage the extensive a central necrosis and this finding would be most consistent with coalescence of adenopathythere is associated displacement of the submandibular gland anteriorly, the sternocleidomastoid muscle laterally and the carotid sheath structures medially. MUCOSAL SPACE: The postcontrast imaging also demonstrates to better advantage extensive mass involving right supraglottic soft tissues which involves the right epiglottis and encroaches on the anterior commissure. There is irregular effacement of the right piriform sinus and vallecula. There is also extension along the posterior laryngeal soft tissues. The nodular mass extends to the level the false vocal cords. No subglottic extension is appreciated. LYMPH NODES: As above with extensive necrotic right-sided adenopathy at. Otherwise I, there are a few scattered smaller nodes within the remaining spaces of the neck. SALIVARY GLANDS: The visualized parotid glands demonstrate fairly symmetric attenuation. The above adenopathy abuts the inferior margin of the right parotid gland with milder inflammatory changes at. As noted above, there is also mild displacement of the right submandibular gland. There is no sialolithiasis. THYROID GLAND: Unremarkable. PARANASAL SINUSES: Visualized paranasal sinuses and mastoid air cells are essentially clear. SPINE: There is reversal of the cervical lordosis with multilevel advanced degenerative the disc changes. VASCULAR STRUCTURES: There is again note of advanced emphysematous changes of the visualized upper lungs. IMPRESSION: 1. Additional postcontrast imaging demonstrates to better advantage an infilt rative lesion involving the supraglottic soft tissues, greater on the right and most consistent with carcinoma as detailed above. 2. The persistent right neck mass most likely represents associated coalescing necrotic adenopathy and also correlates with the prior study of 01/01/2021. Signer Name: Oh Painter MD Signed: 01/06/2021 8:41 PM Workstation Name: [id number] Transcribed By: MR Dictated By: Oh Painter MD Electronically Authenticated By: Oh Painter MD Signed Date/Time: 01/06/212040 DD/ 28 TD/TT: Print Cancel - Medical Decision Making 65-year-old female with emerge department complaining of a greater than 1 month history of a neck mass possible progressive worsening since the onset found to have a cancerous lesion invading the right side of the neck. She still able to tolerate oral as this was tested by the emergency department and she is maintaining stable vitals with no vomiting. She is able to speak in full sentences and has no respiratory distress plan is to have her follow-up with ear nose and throat physician for definitive treatment for this current issue. Case was discussed with attending who also reviewed the CT scan report and is aware of the findings and the plan of care. Critical care attestation.: If time is entered above; I have spent that time in minutes in the direct care of this critically ill patient, excluding procedure time. 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 Please be sure to follow-up with the ear nose and throat physician as we discussed for definitive management and treatment. Please use the provided analgesic medication to help control any pain. Prescriptions: Acetaminophen/Codeine [Tylenol /Codeine # 3 tab] 1 tab PO Q6H PRN #20 tab PRN Reason: servere pain Referrals: KAREN MACIEL MD [Staff Physician] - 2-3 Days (Ear nose and throat doctor available for you follow-up on your neck mass) ALONA ANDUJAR MD [Referring] - 2-3 Days (Ear nose and throat doctor available for follow-up on your neck mass) RUTH ANN LOPEZ MD [Staff Physician] - 2-3 Days (Ear nose and throat doctor available for follow-up on your neck mass)
[2021-01-06] MEDS ORDERED: KETOROLAC 30 MG/1 ML INJ IV ONE (21:08)
[2021-01-06] MEDS ORDERED: KETOROLAC 30 MG/1 ML INJ ONE (21:09)
[2021-01-07 16:57] LABS: C-Reactive Protein 0.9 mg/dL (0.00-1.30)
== END 2021-01-06 21:30 | disposition home or self-care (01) ==
LOC: ED 16:10
DX: R22.1 Localized swelling, mass and lump, neck (principal); M54.2 Cervicalgia; I10 Essential (primary) hypertension; E11.9 Type 2 diabetes mellitus without complications; J44.9 Chronic obstructive pulmonary disease, unspecified; Z90.89 Acquired absence of other organs; Z98.890 Other specified postprocedural states; Z79.2 Long term (current) use of antibiotics; Z79.899 Other long term (current) drug therapy
CPT/HCPCS: 36415; 70491; 80053; 85025; 86140; 96374; 99284; J1885; Q9967

== ENCOUNTER 2021-01-16 21:26 | Emergency (ER) | payer MEDICAID ==
--- NOTE | 2021-01-17 04:45 | XRay Report ---
CHEST 2 VIEWS INDICATION / CLINICAL INFORMATION: Cough. COMPARISON: 2 views of the chest from 08/01/2014. FINDINGS: SUPPORT DEVICES: None. HEART / MEDIASTINUM: No significant abnormality. LUNGS / PLEURA: No significant pulmonary abnormality. No significant pleural effusion. No pneumothora x. ADDITIONAL FINDINGS: No significant additional findings. IMPRESSION: 1. No acute abnormality of the chest. Signer Name: Aleksey Sandoval MD Signed: 01/17/2021 4:40 AM Workstation Name: [id number]
--- NOTE | 2021-01-17 06:03 | Emergency Department Report ---
ED General Adult HPI - General Chief complaint: Medical Clearance Stated complaint: MASS ON NECK/DIZZINESS Source: patient Mode of arrival: Stretcher Limitations: No Limitations - History of Present Illness Initial comments: Patient is a 65-year-old white female with a history of hypertension, irw-[id number]-[id number] diabetes, asthma and COPD and chronic heavy tobacco abuse and who was recently diagnosed with throat cancer at another hospital 3 months ago presents to the ED with persistent cough for the last 1 month, worse in the last 2 days. Patient also states that since his diagnosis of thyroid cancer she has not followed up with any other physician because she has been in denial and wanted a second opinion. Patient states that initially she had presented for evaluation at [facility] and was extensively evaluated and diagnosed with cancer of the throat which was suspicious for thyroid cancer and she has had localized radiation seeds planted. Patient states that she thereafter developed a swollen right lateral neck mass and was supposed to follow-up with a cancer specialist but has not been able to do so. Patient denies dizziness, syncope, fever, chills, shortness of breath, chest pain, nausea and vomiting, headache, syncope, abdominal pain, change in vision or dysphagia and headache. MD Complaint: Cough, swollen neck mass -: Gradual, month(s) (3) Location: neck, chest Radiation: non-radiation Severity scale (0 -10): 4 Consistency: constant Improves with: none Worsens with: other (Cough) Associated Symptoms: denies other symptoms, cough, other (Swollen right lateral neck mass). denies: confusion, chest pain, diaphoresis, fever/chills, headaches, loss of appetite, malaise, nausea/vomiting, rash, seizure, shortness of breath, syncope, weakness Treatments Prior to Arrival: none - Related Data Home Medications Medication Instructions Recorded Confirmed Last Taken hydrOXYzine PAMOATE (NF) [Vistaril 25 mg PO BID 09/17/13 08/01/14 09/17/13 (Nf)] Previous Rx's Medication Instructions Recorded Last Taken Type Albuterol Mdi (or & Nicu Only) 2 puff IH QID PRN 30 Days 08/02/14 Unknown Rx [ProAir HFA Inhaler] inhalation levoFLOXacin [Levaquin] 750 mg PO QDAY #3 tablet 08/02/14 Unknown Rx Acetaminophen [Tylenol] 325 mg PO Q6H PRN #30 capsule 11/05/20 Unknown Rx Azithromycin [Zithromax TAB] 250 mg PO QDAY #5 tablet 11/05/20 Unknown Rx Doxycycline Hyclate [Doxycycline 100 mg PO Q12HR 10 Days #20 tab 01/01/21 Unknown Rx Hyclate TAB] Prednisone [predniSONE 10 mg 10 mg PO .TAPER #1 tab.ds.pk 01/01/21 Unknown Rx (6-Day Pack, 21 Tabs)] Acetaminophen/Codeine [Tylenol 1 tab PO Q6H PRN #20 tab 01/06/21 Unknown Rx /Codeine # 3 tab] Allergies Allergy/AdvReac Type Severity Reaction Status Date / Time ibuprofen [From Motrin] Allergy Rash Verified 01/06/21 18:28 sulfamethoxazole Allergy Rash Verified 01/06/21 18:28 [From Bactrim] trimethoprim [From Bactrim] Allergy Rash Verified 01/06/21 18:28 Penicillins AdvReac Mild Nausea Verified 01/06/21 21:21 ED Review of Systems ROS: Stated complaint: MASS ON NECK/DIZZINESS Other details as noted in HPI Constitutional: malaise, weakness. denies: chills, fever Eyes: denies: eye pain, eye discharge, vision change ENT: denies: ear pain, throat pain Respiratory: cough. denies: shortness of breath, wheezing Cardiovascular: denies: chest pain, palpitations Endocrine: no symptoms reported Gastrointestinal: denies: abdominal pain, nausea, vomiting, diarrhea Genitourinary: denies: urgency, dysuria, discharge Musculoskeletal: other (Swollen right lateral neck mass). denies: back pain, joint swelling, arthralgia Skin: other (Prominent swollen right lateral neck mass). denies: rash, lesions Neurological: denies: headache, weakness, paresthesias Psychiatric: denies: anxiety, depression Hematological/Lymphatic: denies: easy bleeding, easy bruising ED Past Medical Hx - Past Medical History Previous Medical History?: Yes Hx Hypertension: Yes Hx Heart Attack/AMI: No Hx Congestive Heart Failure: No Hx Diabetes: Yes Hx Deep Vein Thrombosis: No Hx Pulmonary Embolism: No Hx Liver Disease: No Hx Renal Disease: No Hx Sickle Cell Disease: Yes Hx Arthritis: No Hx Seizures: No Hx Kidney Stones: No Hx Psychiatric Treatment: Yes Hx Asthma: Yes Hx COPD: Yes Hx Tuberculosis: No Hx Dementia: No Hx HIV: No Additional medical history: History of PUD. History of anemia on recent old records. History of hyponatremia on recent old records - Surgical History Past Surgical History?: No Hx Coronary Stent: No Hx Open Heart Surgery: No Hx Pacemaker: No Hx Internal Defibrillator: No Hx Cholecystectomy: No Hx Appendectomy: No Hx Breast Surgery: No Additional Surgical History: lt knee surgery,rt foot surgery,TONSILECTOMY - Social History Smoking Status: Former Smoker Substance Use Type: None - Medications Home Medications: Home Medications Medication Instructions Recorded Confirmed Last Taken Type hydrOXYzine PAMOATE (NF) [Vistaril 25 mg PO BID 09/17/13 08/01/14 09/17/13 History (Nf)] Albuterol Mdi (or & Nicu Only) 2 puff IH QID PRN 30 Days 08/02/14 Unknown Rx [ProAir HFA Inhaler] inhalation levoFLOXacin [Levaquin] 750 mg PO QDAY #3 tablet 08/02/14 Unknown Rx Acetaminophen [Tylenol] 325 mg PO Q6H PRN #30 capsule 11/05/20 Unknown Rx Azithromycin [Zithromax TAB] 250 mg PO QDAY #5 tablet 11/05/20 Unknown Rx Doxycycline Hyclate [Doxycycline 100 mg PO Q12HR 10 Days #20 tab 01/01/21 Unknown Rx Hyclate TAB] Prednisone [predniSONE 10 mg 10 mg PO .TAPER #1 tab.ds.pk 01/01/21 Unknown Rx (6-Day Pack, 21 Tabs)] Acetaminophen/Codeine [Tylenol 1 tab PO Q6H PRN #20 tab 01/06/21 Unknown Rx /Codeine # 3 tab] ED Physical Exam - General Limitations: No Limitations General appearance: alert, in no apparent distress, cachectic - Head Head exam: Present: atraumatic, normocephalic, normal inspection - Eye Eye exam: Present: normal appearance, PERRL, EOMI Pupils: Present: normal accommodation - ENT ENT exam: Present: normal exam, normal orophraynx, mucous membranes moist, TM's normal bilaterally, normal external ear exam - Neck Neck exam: Present: normal inspection, full ROM, lymphadenopathy (Right lateral swollen and prominent mass of the neck), thyromegaly - Respiratory Respiratory exam: Present: normal lung sounds bilaterally. Absent: respiratory distress, wheezes, rales, rhonchi, chest wall tenderness, accessory muscle use, decreased breath sounds, prolonged expiratory - Cardiovascular Cardiovascular Exam: Present: normal rhythm, tachycardia, normal heart sounds. Absent: systolic murmur, diastolic murmur, rubs, gallop - GI/Abdominal GI/Abdominal exam: Present: soft, normal bowel sounds. Absent: tenderness, guarding, rebound, hyperactive bowel sounds, hypoactive bowel sounds, organomegaly - Extremities Exam Extremities exam: Present: normal inspection, full ROM, normal capillary refill - Back Exam Back exam: Present: normal inspection, full ROM. Absent: tenderness, CVA tenderness (R), CVA tenderness (L), muscle spasm, paraspinal tenderness, vertebral tenderness - Neurological Exam Neurological exam: Present: alert, oriented X3, CN II-XII intact, normal gait, reflexes normal - Psychiatric Psychiatric exam: Present: normal affect, normal mood, anxious - Skin Skin exam: Present: warm, dry, intact, normal color. Absent: rash ED Course Vital Signs 01/17/21 00:56 Temperature 97.8 F Pulse Rate 102 H Respiratory 18 Rate Blood Pressure 148/118 O2 Sat by Pulse 96 Oximetry ED Medical Decision Making - Radiology Data Radiology results: report reviewed, image reviewed [facility] [address] [place] [address] XRay Report Signed Patient: UTE SIFUENTES MR#: [id number] : 1955 Acct:[id number] Age/Sex: 65 / F ADM Date: 01/16/21 Loc: ED Attending Dr: Ordering Physician: JOANNE CARR Date of Service: 01/17/21 Procedure(s): XR chest routine 2V Accession Number(s): [id number] cc: JOANNE CARR Fluoro Time In Minutes: CHEST 2 VIEWS INDICATION / CLINICAL INFORMATION: Cough. COMPARISON: 2 views of the chest from 08/01/2014. FINDINGS: SUPPORT DEVICES: None. HEART / MEDIASTINUM: No significant abnormality. LUNGS / PLEURA: No significant pulmonary abnormality. No significant pleural effusion. No pneumothorax. ADDITIONAL FINDINGS: No significant additional findings. IMPRESSION: 1. No acute abnormality of the chest. Signer Name: Aleksey Sandoval MD Signed: 01/17/2021 4:40 AM Workstation Name: [id number] Transcribed By: MN Dictated By: Aleksey Sandoval MD Electronically Authenticated By: Aleksey Sandoval MD Signed Date/Time: 01/17/21439 DD/ 9 TD/TT: - Medical Decision Making This is a 65-year-old white female with a history of hypertension, bjg-rcuyyre-zeboaxsen diabetes, asthma and COPD and chronic heavy tobacco abuse and who was recently diagnosed with throat cancer at another hospital 3 months ago presents to the ED with persistent cough for the last 1 month, worse in the last 2 days. Patient also states that since his diagnosis of thyroid cancer she has not followed up with any other physician because she has been in denial and wanted a second opinion. Patient states that initially she had presented for evaluation at [facility] and was extensively evaluated and diagnosed with cancer of the throat which was suspicious for thyroid cancer and she has had localized radiation seeds planted. Patient states that she thereafter developed a swollen right lateral neck mass and was supposed to follow-up with a cancer specialist but has not been able to do so. In the ED, patient is alert and oriented x3 and is not in any distress, afebrile, tachycardic, cachectic and appears disheveled. Chest x-ray shows no acute cardiopulmonary abnormalities or pneumonitis. Patient was discharged home and given referral to the cancer clinic at [facility] follow-up. Patient was advised to return to the ED immediately if symptoms get worse. - Differential Diagnosis Neck mass; thyroid cancer; lymphadenopathy; Critical care attestation.: If time is entered above; I have spent that time in minutes in the direct care of this critically ill patient, excluding procedure time. ED Disposition Clinical Impression: Palpable mass of neck Chronic bronchitis Qualifiers: Chronic bronchitis type: simple Qualified Code(s): J41.0 - Simple chronic bronchitis Disposition: -01 TO HOME OR SELFCARE Is pt being admited?: No Does the pt Need Aspirin: No Condition: Stable Instructions: Chronic Bronchitis (ED), Cough, Adult, Smaw-rk-Wsvt Additional Instructions: Chest x-ray shows no acute cardiopulmonary abnormalities or pneumonitis but COPD pattern. Therefore take your regular medications and follow-up with [facility] for further evaluation. Return to the ED immediately if symptoms get worse. Referrals: [facility] [Outside] - 3-5 Days Time of Disposition: 06:09 Print Language: CZECH
[2021-01-17 07:18] VITALS: BP 156/101
== END 2021-01-17 06:55 | disposition home or self-care (01) ==
LOC: ED 21:26
DX: J41.0 Simple chronic bronchitis (principal); R22.1 Localized swelling, mass and lump, neck; I10 Essential (primary) hypertension; E11.9 Type 2 diabetes mellitus without complications; Z98.890 Other specified postprocedural states; Z79.899 Other long term (current) drug therapy; Z88.0 Allergy status to penicillin; Z88.8 Allergy status to other drugs, medicaments and biological substances; Z88.2 Allergy status to sulfonamides; Z87.891 Personal history of nicotine dependence
CPT/HCPCS: 71046

== ENCOUNTER 2021-01-23 16:30 | Inpatient (IN) | payer MEDICAID ==
--- NOTE | 2021-01-23 17:42 | Emergency Department Report ---
HPI - General Chief Complaint: Dyspnea/Respdistress Time Seen by Provider: 01/23/21 17:34 - HPI HPI: This is a 65-year-old female presents to the emergency department via EMS from home with a complaint of a 4-day history of progressively worsening shortness of breath, wheezing, and coughing. Patient denies any fever, chest pain, abdominal pain, lower extremity swelling. EMS found the patient to have a room air pulse ox of about 90%. She was given 5 mg of albuterol and 125 mg of Solu-Medrol, placed on some supplemental oxygen, and her oxygen saturation went up to 98%. She has a past medical history that includes asthma, COPD (not O2 d ependent), diabetes, hypertension, PUD, and "lymph node cancer." Patient has a large mass to the right side of the neck and she says that she has "2 stents in my neck." The patient is a tobacco smoker, but denies any illicit drug use. No recent travel or sick contacts at home. Patient is vaccinated against COVID-19. ED Past Medical Hx - Past Medical History Hx Hypertension: Yes Hx Heart Attack/AMI: No Hx Congestive Heart Failure: No Hx Diabetes: Yes Hx Deep Vein Thrombosis: No Hx Pulmonary Embolism: No Hx Liver Disease: No Hx Renal Disease: No Hx Sickle Cell Disease: Yes Hx Arthritis: No Hx Seizures: No Hx Kidney Stones: No Hx Psychiatric Treatment: Yes Hx Asthma: Yes Hx COPD: Yes Hx Tuberculosis: No Hx Dementia: No Hx HIV: No Additional medical history: History of PUD. History of anemia on recent old records. History of hyponatremia on recent old records - Surgical History Hx Coronary Stent: No Hx Open Heart Surgery: No Hx Pacemaker: No Hx Internal Defibrillator: No Hx Cholecystectomy: No Hx Appendectomy: No Hx Breast Surgery: No Additional Surgical History: lt knee surgery,rt foot surgery,TONSILECTOMY - Social History Smoking Status: Former Smoker Substance Use Type: None - Medications Home Medications: Home Medications Medication Instructions Recorded Confirmed Last Taken Type hydrOXYzine PAMOATE (NF) [Vistaril 25 mg PO BID 09/17/13 08/01/14 09/17/13 History (Nf)] Albuterol Mdi (or & Nicu Only) 2 puff IH QID PRN 30 Days 08/02/14 Unknown Rx [ProAir HFA Inhaler] inhalation levoFLOXacin [Levaquin] 750 mg PO QDAY #3 tablet 08/02/14 Unknown Rx Acetaminophen [Tylenol] 325 mg PO Q6H PRN #30 capsule 11/05/20 Unknown Rx Azithromycin [Zithromax TAB] 250 mg PO QDAY #5 tablet 11/05/20 Unknown Rx Doxycycline Hyclate [Doxycycline 100 mg PO Q12HR 10 Days #20 tab 01/01/21 Unknown Rx Hyclate TAB] Prednisone [predniSONE 10 mg 10 mg PO .TAPER #1 tab.ds.pk 01/01/21 Unknown Rx (6-Day Pack, 21 Tabs)] Acetaminophen/Codeine [Tylenol 1 tab PO Q6H PRN #20 tab 01/06/21 Unknown Rx /Codeine # 3 tab] ED Review of Systems ROS: Stated complaint: ALICIA Other details as noted in HPI Comment: All other systems reviewed and negative Constitutional: denies: chills, fever Eyes: denies: eye pain, vision change ENT: denies: ear pain, throat pain Respiratory: cough, shortness of breath, wheezing Cardiovascular: denies: chest pain, edema Gastrointestinal: denies: abdominal pain, vomiting Genitourinary: denies: dysuria, discharge Musculoskeletal: denies: back pain, arthralgia Skin: denies: rash, lesions Neurological: denies: headache, weakness Physical Exam - Physical Exam Vital Signs: Vital Signs 01/23/21 16:31 Temperature 97.8 F Pulse Rate 109 H Respiratory 23 Rate Blood Pressure 191/126 [Right] O2 Sat by Pulse 99 Oximetry Physical Exam: GENERAL: The patient is ill-appearing. HENT: Normocephalic. Atraumatic. Patient has moist mucous membranes. No drooling or trismus. EYES: Extraocular motions are intact. NECK: Supple. There is a moderate to large right sided neck mass at the base of the neck that is about the size of a baseball. CHEST/LUNGS: Moderate wheezing throughout the chest. There is some tachypnea but no accessory muscle use. A dry cough heard during examination. HEART/CARDIOVASCULAR: Regular. There is no tachycardia. There is no murmur. ABDOMEN: Abdomen is soft, nontender. Patient has normal bowel sounds. There is no abdominal distention. SKIN: Skin is warm and dry. NEURO: The patient is awake, alert, and oriented. The patient is cooperative. The patient has no focal neurologic deficits. Normal speech. MUSCULOSKELETAL: There is no tenderness or deformity. There is no limitation range of motion. ED Course Vital Signs 01/23/21 16:31 Temperature 97.8 F Pulse Rate 109 H Respiratory 23 Rate Blood Pressure 191/126 [Right] O2 Sat by Pulse 99 Oximetry ED Medical Decision Making - Lab Data Result diagrams: 01/24/21 06:08 01/24/21 06:08 Lab Results 01/23/21 01/23/21 01/23/21 Range/Units 17:50 17:50 17:50 WBC 12.2 H (4.5-11.0) K/mm3 RBC 3.37 L (3.65-5.03) M/mm3 Hgb 9.4 L (10.1-14.3) gm/dl Hct 29.4 L (30.3-42.9) % MCV 87 (79-97) fl MCH 28 (28-32) pg MCHC 32 (30-34) % RDW 20.3 H (13.2-15.2) % Plt Count 296 (140-440) K/mm3 Seg Neutrophils % Policy Writer Typist D-Dimer 413.40 H (0-234) ng/mlDDU Sodium 134 L (137-145) mmol/L Potassium 3.7 (3.6-5.0) mmol/L Chloride 85.9 L (98-107) mmol/L Carbon Dioxide 20 L (22-30) mmol/L Anion Gap 32 mmol/L BUN 17 (7-17) mg/dL Creatinine 1.1 (0.6-1.2) mg/dL Estimated GFR 50 ml/min BUN/Creatinine Ratio 15 % Glucose 105 H (65-100) mg/dL Calcium 10.7 H (8.4-10.2) mg/dL Total Bilirubin 0.40 (0.1-1.2) mg/dL AST 19 (5-40) units/L ALT 11 (7-56) units/L Alkaline Phosphatase 104 (35-129) units/L Troponin T < 0.010 (0.00-0.029) ng/mL NT-Pro-B Natriuret Pep 5002 H (0-900) pg/mL Total Protein 7.8 (6.3-8.2) g/dL Albumin 3.9 (3.9-5) g/dL Albumin/Globulin Ratio 1.0 % - EKG Data -: EKG Interpreted by Me EKG shows normal: sinus rhythm, axis, intervals, QRS complexes (LVH), ST-T waves Rate: tachycardia (102 bpm) - EKG Data When compared to previous EKG there are: no significant change (08/01/14) Interpretation: LVH - Radiology Data Radiology results: report reviewed, image reviewed interpreted by me: Chest x-ray does not show any pneumonia, pleural effusions, pneumothorax, widened mediastinum. There is hyperinflation of the lungs and flattening of the diaphragm. Ventilation/perfusion scan is low probability for a pulmonary embolism. - Medical Decision Making This patient presents with a 4-day history of progressively worsening shortness of breath and some coughing. She was found to have a room air pulse ox of about 88%. She does have a history of COPD but is not oxygen dependent at home. Patient was given some steroids and breathing treatment in route with EMS. Patient presents with some tachypnea and bronchospasm. She was given Xopenex, Atrovent and magnesium here. Previous CT of the neck reviewed that shows a right-sided supraglottic soft tissue lesion most consistent with carcinoma, and a right-sided neck mass that appears to be a coalescing necrotic adenopathy. The right-sided neck mass is firm, not fluctuant, and slightly tender. The patient does not have any drooling or trismus. I do not hear any significant stridor at this time. Chest x-ray does not show any pneumonia, pleural effusions, pneumothorax, widened mediastinum, or any other acute process. Patient's labs are remarkable for some anemia with hemoglobin of 9, mild renal insufficiency with a GFR of 50, and a proBNP of about 5000. The patient presents with extremely elevated blood pressure. She was given 2 doses of hydralazine with some improvement. She was also given a dose of Lasix. The patient continues to have visible shortness of breath and bronchospasm despite the previously mentioned treatments. She will be admitted to the hospital for further evaluation and treatment was accepted for admission by the hospitalist, Dr. Rausch. Critical Care Time: No Critical care attestation.: If time is entered above; I have spent that time in minutes in the direct care of this critically ill patient, excluding procedure time. ED Disposition Clinical Impression: COPD exacerbation, CHF (congestive heart failure), Dyspnea, Hypertensive urgency, Tobacco use disorder, Hypoxia, Palpable mass of neck Disposition: 09 OP ADMIT IP TO THIS HOSP Is pt being admited?: Yes Condition: Fair Time of Disposition: 19:00
[2021-01-23] MEDS ORDERED: hydrALAZINE 20 MG/1 ML INJ IV ONE ×2 (18:00→18:37)
--- NOTE | 2021-01-23 18:07 | XRay Report ---
CHEST 1 VIEW 01/23/2021 4:55 PM INDICATION / CLINICAL INFORMATION: SOB. COMPARISON: 01/17/21. FINDINGS: SUPPORT DEVICES: None. HEART / MEDIASTINUM: The heart size and pulmonary vasculature are normal. The aorta is mildly tortuou s with calcification in the arch. LUNGS / PLEURA: The lungs are hyperinflated. No other significant pulmonary or pleural abnormality. N o pneumothorax. ADDITIONAL FINDINGS: There are multiple old right posterior rib fractures. There is an old healed fra cture of the left humeral neck. IMPRESSION: Emphysema. No acute abnormality or significant change. Signer Name: Rocky Turner MD Signed: 01/23/2021 6:03 PM Workstation Name: [id number]
[2021-01-23 18:13] LABS: Hematocrit 29.4 % (30.3-42.9); Hemoglobin 9.4 gm/dl (10.1-14.3); Mean Corpuscular HGB Conc 32 % (30-34); Mean Corpuscular Volume 87 fl (79-97); Platelet Count 296 K/mm3 (140-440); Red Blood Count 3.37 M/mm3 (3.65-5.03)
[2021-01-23] MEDS ORDERED: MAGNESIUM SULFATE 1 GM in SODIUM CHLORIDE 0.9% 50 ML IV ONE (18:30)
[2021-01-23 18:35] LABS: Alanine Aminotransferase 11 units/L (7-56); Albumin 3.9 g/dL (3.9-5); BUN/Creatinine Ratio 15; Blood Urea Nitrogen 17 mg/dL (7-17); Calcium 10.7 mg/dL (8.4-10.2); Hemolysis Index 1
[2021-01-23] MEDS ORDERED: LEVALBUTEROL 0.63 MG/3 ML NEBU IH ONE ×2 (18:37→19:28)
[2021-01-23] MEDS ORDERED: IPRATROPIUM 0.02% NEBU 2.5 ML IH ONE (18:38)
[2021-01-23 18:49] LABS: Red Cell Distribution Width 20.3 % (13.2-15.2)
[2021-01-23] MEDS ORDERED: FUROSEMIDE 20 MG/2 ML INJ IV ONE (18:59)
[2021-01-23 19:46] LABS: Band Neutrophils # (Manual) 0.1 K/mm3; Total Cells Counted 100
[2021-01-23 19:47] LABS: Anisocytosis 1+
[2021-01-23] MEDS ORDERED: ALBUTEROL 2.5 MG/3 ML NEBU IH PRN (20:48)
[2021-01-23] MEDS ORDERED: ACETAMINOPHEN 325 MG TAB PO PRN (20:48)
[2021-01-23] MEDS ORDERED: IBUPROFEN 600 MG TAB PO PRN (20:48)
[2021-01-23] MEDS ORDERED: METOCLOPRAMIDE 10 MG/2 ML INJ IV PRN (20:48)
[2021-01-23] MEDS ORDERED: HYDROcodone/ACETAMINOPHEN 5-325 MG TAB PO PRN (20:48)
[2021-01-23] MEDS ORDERED: NALOXONE 0.4 MG/1 ML INJ IV PRN (20:48)
[2021-01-23] MEDS ORDERED: MAGNESIUM HYDROXIDE (MOM) ORAL LIQD UDC PO PRN (20:48)
[2021-01-23] MEDS ORDERED: SENNOSIDES 8.6 MG TAB PO PRN (20:48)
[2021-01-23] MEDS ORDERED: ONDANSETRON 4 MG/2 ML INJ IV PRN (20:48)
[2021-01-23] MEDS ORDERED: MORPHINE 4 MG/1 ML INJ IV PRN (20:48)
--- NOTE | 2021-01-23 20:48 | Nuclear Medicine Report ---
Nuclear medicine perfusion lung scan Indication: Shortness of breath Technique: 5.1 mCi of Tc 99m MAA were given by IV. Findings: Comparison with chest radiograph from earlier today. No ventilation images were obtained. On perfusion imaging, no wedge-shaped, pleural-based, segmental defects are seen. There is decreased activity in the upper lungs which is likely secondary to emphysema. Impression: No perfusion abnormalities to suggest acute PTE. Signer Name: Willie Meyers MD Signed: 01/23/2021 8:44 PM Workstation Name: [id number]
[2021-01-23] MEDS ORDERED: ALBUTEROL 8.5 GM MDI INHALATION IH PRN (20:52)
--- NOTE | 2021-01-23 21:49 | History and Physical Report ---
<LOIS BUI - Last Filed: 01/24/21 06:03> History of Present Illness Date of examination: 01/23/21 Date of admission: 01/23/21 19:00 Chief complaint: Shortness of breath Cough History of present illness: This is a 65-year-old female presents to the emergency department via EMS from home with a complaint of worsening shortness of breath, wheezing, and coughing times 4 days. Patient denies any fever, chest pain, abdominal pain, lower extremity swelling. She has a past medical history of asthma, COPD. patient is not on home oxygen. patient also has hx of diabetes, hypertension, PUD, and "lymph node cancer." Patient has a large mass to the right side of the neck and she says that she has "2 stents in my neck. Patient admits tobacco use, but denies any illicit drug use. Patient is vaccinated for COVID-19. Past History Social history: lives with family Family history: no significant family history Medications and Allergies Allergies Allergy/AdvReac Type Severity Reaction Status Date / Time ibuprofen [From Motrin] Allergy Rash Verified 01/06/21 18:28 sulfamethoxazole Allergy Rash Verified 01/06/21 18:28 [From Bactrim] trimethoprim [From Bactrim] Allergy Rash Verified 01/06/21 18:28 Penicillins AdvReac Mild Nausea Verified 01/06/21 21:21 Home Medications Medication Instructions Recorded Confirmed Last Taken Type hydrOXYzine PAMOATE (NF) [Vistaril 25 mg PO BID 09/17/13 08/01/14 09/17/13 History (Nf)] Albuterol Mdi (or & Nicu Only) 2 puff IH QID PRN 30 Days 08/02/14 Unknown Rx [ProAir HFA Inhaler] inhalation levoFLOXacin [Levaquin] 750 mg PO QDAY #3 tablet 08/02/14 Unknown Rx Acetaminophen [Tylenol] 325 mg PO Q6H PRN #30 capsule 11/05/20 Unknown Rx Azithromycin [Zithromax TAB] 250 mg PO QDAY #5 tablet 11/05/20 Unknown Rx Doxycycline Hyclate [Doxycycline 100 mg PO Q12HR 10 Days #20 tab 01/01/21 Unknown Rx Hyclate TAB] Prednisone [predniSONE 10 mg 10 mg PO .TAPER #1 tab.ds.pk 01/01/21 Unknown Rx (6-Day Pack, 21 Tabs)] Acetaminophen/Codeine [Tylenol 1 tab PO Q6H PRN #20 tab 01/06/21 Unknown Rx /Codeine # 3 tab] Active Meds: Active Medications Acetaminophen (Acetaminophen 325 Mg Tab) 650 mg PO Q4H PRN PRN Reason: Pain MILD(1-3)/Fever >100.5/AGRAWAL Hydrocodone Bitart/Acetaminophen (Hydrocodone/Acetaminophen 5-325 Mg Tab) 2 each PO Q6H PRN PRN Reason: Pain, Moderate (4-6) Albuterol (Albuterol 2.5 Mg/3 Ml Nebu) 2.5 mg IH Q4HRT PRN PRN Reason: Shortness Of Breath Famotidine (Famotidine 20 Mg/2 Ml Inj) 20 mg IV BID ISMAEL Hydroxyzine Pamoate (Hydroxyzine Pamoate 25 Mg Cap) 25 mg PO BID ISMAEL Magnesium Hydroxide (Magnesium Hydroxide (Mom) Oral Liqd Udc) 30 ml PO Q4H PRN PRN Reason: Constipation Metoclopramide HCl (Metoclopramide 10 Mg/2 Ml Inj) 10 mg IV Q6H PRN PRN Reason: Nausea And Vomiting Morphine Sulfate (Morphine 4 Mg/1 Ml Inj) 4 mg IV Q4H PRN PRN Reason: Pain , Severe (7-10) Naloxone HCl (Naloxone 0.4 Mg/1 Ml Inj) 0.1 mg IV Q2MIN PRN PRN Reason: Res Rate </= 8 or 02 SAT < 92% Ondansetron HCl (Ondansetron 4 Mg/2 Ml Inj) 4 mg IV Q8H PRN PRN Reason: Nausea And Vomiting Senna (Sennosides 8.6 Mg Tab) 8.6 mg PO Q12HR PRN PRN Reason: Constipation Sodium Chloride (Sodium Chloride 0.9% 10 Ml Flush Syringe) 10 ml IV BID ISMAEL Review of Systems Ears, nose, mouth and throat: no epistaxis, no bleeding gums Hematologic/Lymphatic: no easy bruising, no easy bleeding Exam - Constitutional Vitals: Temp Pulse Resp BP Pulse Ox 97.8 F 108 H 16 148/103 100 01/23/21 16:31 01/23/21 19:33 01/23/21 19:33 01/23/21 19:00 01/23/21 19:00 HEART Score - HEART Score Troponin: Troponin T < 0.010 ng/mL (0.00-0.029) 01/23/21 17:50 Results - Labs CBC & Chem 7: 01/23/21 17:50 01/23/21 17:50 Labs: Abnormal lab results 01/23/21 01/23/21 01/23/21 Range/Units 17:50 17:50 17:50 WBC 12.2 H (4.5-11.0) K/mm3 RBC 3.37 L (3.65-5.03) M/mm3 Hgb 9.4 L (10.1-14.3) gm/dl Hct 29.4 L (30.3-42.9) % RDW 20.3 H (13.2-15.2) % Seg Neuts % (Manual) 88.0 H (40.0-70.0) % Lymphocytes % (Manual) 8.0 L (13.4-35.0) % Seg Neutrophils # Man 10.7 H (1.8-7.7) K/mm3 Lymphocytes # (Manual) 1.0 L (1.2-5.4) K/mm3 D-Dimer 413.40 H (0-234) ng/mlDDU Sodium 134 L (137-145) mmol/L Chloride 85.9 L (98-107) mmol/L Carbon Dioxide 20 L (22-30) mmol/L Glucose 105 H (65-100) mg/dL Calcium 10.7 H (8.4-10.2) mg/dL NT-Pro-B Natriuret Pep 5002 H (0-900) pg/mL Assessment and Plan - Patient Problems (1) CHF (congestive heart failure) Current Visit: Yes Status: Acute Plan to address problem: Cardioprotective measures antiplatelet, BB, antidiuretic and oxygen supplements as needed Manager Radio consult follow-up with plan of care Echocardiogram (2) COPD exacerbation Current Visit: Yes Status: Acute Plan to address problem: Albuterol and oxygen supplement Systemic steroid (3) Hypertensive urgency Current Visit: Yes Status: Acute Plan to address problem: Monitor blood pressure Resume home antihypertensive (4) Tobacco use disorder Current Visit: Yes Status: Acute Plan to address problem: Discussed tobacco use cessation <ELIAN REYNA S - Last Filed: 01/24/21 22:14> History of Present Illness Date of admission: 01/23/21 19:00 Medications and Allergies Active Meds: Active Medications Acetaminophen (Acetaminophen 325 Mg Tab) 650 mg PO Q4H PRN PRN Reason: Pain MILD(1-3)/Fever >100.5/AGRAWAL Hydrocodone Bitart/Acetaminophen (Hydrocodone/Acetaminophen 5-325 Mg Tab) 2 each PO Q6H PRN PRN Reason: Pain, Moderate (4-6) Albuterol (Albuterol 2.5 Mg/3 Ml Nebu) 2.5 mg IH Q4HRT PRN PRN Reason: Shortness Of Breath Aspirin (Aspirin Ec 81 Mg Tab) 81 mg PO QDAY [facility] Atorvastatin Calcium (Atorvastatin 40 Mg Tab) 40 mg PO QHS [facility] Azithromycin (Azithromycin 250 Mg Tab) 500 mg PO QDAY [facility]; Protocol Carvedilol (Carvedilol 6.25 Mg Tab) 6.25 mg PO BID [facility] Famotidine (Famotidine 20 Mg/2 Ml Inj) 20 mg IV BID [facility] Last Admin: 01/24/21 00:18 Dose: 20 mg Documented by: Furosemide (Furosemide 20 Mg/2 Ml Inj) 20 mg IV 0600,1800 [facility] Hydralazine HCl (Hydralazine 20 Mg/1 Ml Inj) 5 mg IV Q4HR PRN PRN Reason: Hypertension Hydroxyzine Pamoate (Hydroxyzine Pamoate 25 Mg Cap) 25 mg PO BID [facility] Last Admin: 01/24/21 00:19 Dose: 25 mg Documented by: Magnesium Hydroxide (Magnesium Hydroxide (Mom) Oral Liqd Udc) 30 ml PO Q4H PRN PRN Reason: Constipation Methylprednisolone Sodium Succinate (Methylprednisolone Sod Succinate 40 Mg/1 Ml Inj) 40 mg IV Q8HR [facility] Last Admin: 01/24/21 00:16 Dose: 40 mg Documented by: Metoclopramide HCl (Metoclopramide 10 Mg/2 Ml Inj) 10 mg IV Q6H PRN PRN Reason: Nausea And Vomiting Last Admin: 01/24/21 00:16 Dose: 10 mg Documented by: Morphine Sulfate (Morphine 4 Mg/1 Ml Inj) 4 mg IV Q4H PRN PRN Reason: Pain , Severe (7-10) Last Admin: 01/24/21 00:58 Dose: 4 mg Documented by: Naloxone HCl (Naloxone 0.4 Mg/1 Ml Inj) 0.1 mg IV Q2MIN PRN PRN Reason: Res Rate </= 8 or 02 SAT < 92% Ondansetron HCl (Ondansetron 4 Mg/2 Ml Inj) 4 mg IV Q8H PRN PRN Reason: Nausea And Vomiting Senna (Sennosides 8.6 Mg Tab) 8.6 mg PO Q12HR PRN PRN Reason: Constipation Sodium Chloride (Sodium Chloride 0.9% 10 Ml Flush Syringe) 10 ml IV BID ISMAEL Last Admin: 01/24/21 00:19 Dose: 10 ml Documented by: Exam - Constitutional Vitals: Temp Pulse Resp BP Pulse Ox 98.1 F 120 H 20 126/94 99 01/24/21 04:39 01/24/21 04:39 01/24/21 04:39 01/24/21 04:39 01/24/21 04:39 HEART Score - HEART Score Troponin: Troponin T < 0.010 ng/mL (0.00-0.029) 01/23/21 17:50 Results - Labs CBC & Chem 7: 01/24/21 06:08 01/24/21 06:08 Labs: Abnormal lab results 01/23/21 01/23/21 01/23/21 Range/Units 17:50 17:50 17:50 WBC 12.2 H (4.5-11.0) K/mm3 RBC 3.37 L (3.65-5.03) M/mm3 Hgb 9.4 L (10.1-14.3) gm/dl Hct 29.4 L (30.3-42.9) % RDW 20.3 H (13.2-15.2) % Seg Neuts % (Manual) 88.0 H (40.0-70.0) % Lymphocytes % (Manual) 8.0 L (13.4-35.0) % Seg Neutrophils # Man 10.7 H (1.8-7.7) K/mm3 Lymphocytes # (Manual) 1.0 L (1.2-5.4) K/mm3 D-Dimer 413.40 H (0-234) ng/mlDDU Sodium 134 L (137-145) mmol/L Chloride 85.9 L (98-107) mmol/L Carbon Dioxide 20 L (22-30) mmol/L Glucose 105 H (65-100) mg/dL Calcium 10.7 H (8.4-10.2) mg/dL NT-Pro-B Natriuret Pep 5002 H (0-900) pg/mL Assessment and Plan Large right-sided neck mass--work-up done at the [facility]. Patient noncompliant with follow-ups. No stridor or airway compromise. Bilateral rhonchi and wheezing present. 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 Patient states that she thereafter developed a swollen right lateral neck mass and was supposed to follow-up with a cancer specialist but has not been able to do so.
[2021-01-23] MEDS ORDERED: hydrALAZINE 20 MG/1 ML INJ IV PRN (21:59)
[2021-01-23] MEDS ORDERED: HYDROXYZINE PAMOATE 100 MG PO SCH (22:00)
[2021-01-24] MEDS: methylPREDNISolone Sod Succinate 40 MG/1 ML INJ IV SCH ×3 (00:16→16:17)
[2021-01-24] MEDS: FAMOTIDINE 20 MG/2 ML INJ IV SCH ×2 (00:18→10:52)
[2021-01-24] MEDS: hydrOXYzine PAMOATE 25 MG CAP PO SCH ×2 (00:19→10:51)
[2021-01-24] MEDS ORDERED: FUROSEMIDE 20 MG/2 ML INJ IV SCH (06:00)
[2021-01-24 06:30] LABS: Hematocrit 28.6 % (30.3-42.9); Hemoglobin 9.3 gm/dl (10.1-14.3); Mean Corpuscular HGB Conc 33 % (30-34); Mean Corpuscular Volume 86 fl (79-97); Platelet Count 333 K/mm3 (140-440); Red Blood Count 3.31 M/mm3 (3.65-5.03)
[2021-01-24 06:35] LABS: Red Cell Distribution Width 20.2 % (13.2-15.2)
[2021-01-24] MEDS ORDERED: IPRATROPIUM/ALBUTEROL SULFATE 3 ML AMPUL.NEB IH PRN (06:40)
[2021-01-24] MEDS ORDERED: ALBUTEROL 2.5 MG/3 ML NEBU IH PRN (06:48)
[2021-01-24 06:52] LABS: Albumin 4.4 g/dL (3.9-5); Calcium 10.7 mg/dL (8.4-10.2)
[2021-01-24 07:39] LABS: Total Cells Counted 100
[2021-01-24 07:40] LABS: Anisocytosis 1+; Platelet Estimate Consistent w Auto
[2021-01-24] MEDS: IPRATROPIUM/ALBUTEROL SULFATE 3 ML AMPUL.NEB IH SCH ×4 (08:04→20:18)
--- NOTE | 2021-01-24 09:03 | Progress Note ---
Assessment and Plan Assessment and plan: 1Acute resp failure due to COPD exacerbation Supplemental Oxygen Started on BIPAP Pulm consulted (2) COPD exacerbation Current Visit: Yes Status: Acute Plan to address problem: Albuterol and oxygen supplement Systemic steroid (3) Hypertensive urgency Current Visit: Yes Status: Acute Plan to address problem: Monitor blood pressure Resume home antihypertensive (4) Tobacco use disorder Current Visit: Yes Status: Acute Plan to address problem: Discussed tobacco use cessation ZOË due to vasomotor neophropathy Stop Lasix Repeat in am Mass right side of neck Will do CT with contrast when Cr normal 01/24/21 Patient presents with shortness of breath. Acute resp failure. Patient put on BIPAP because of respiratory distress. Will get ABG. Pulm consulted. Will also consult Cardiology because of elevated BNP Right neck mass. Will do CT neck with contrast when Cr improves Will get more history from her later History Interval history: shortness of breath right neck mass for months patient cannot give much history because of shortness of breath Hospitalist Physical - Physical exam Narrative exam: Gen: Not in acute distress, lying in bed, malnourished, HEENT: Normocephalic, atraumatic Neck : mass right side of neck, supple, no JVD Heart:S1 and S2 reg, no murmurs, rubs or gallop Lungs: Bilateral wheeze, Abd: Soft , NT, non distended, normal bowel sounds Ext: No edema, no clubbing, no cyanosis Neuro: Awake, alert, oriented, moves all ext - Constitutional Vitals: Temp Pulse Resp BP Pulse Ox 98.5 F 112 H 24 164/117 100 01/24/21 08:53 01/24/21 08:53 01/24/21 08:53 01/24/21 08:53 01/24/21 08:53 HEART Score - HEART Score Troponin: Troponin T < 0.010 ng/mL (0.00-0.029) 01/23/21 17:50 Results - Labs CBC & Chem 7: 01/24/21 06:08 01/24/21 06:08 Labs: Laboratory Last Values WBC 11.0 K/mm3 (4.5-11.0) 01/24/21 06:08 RBC 3.31 M/mm3 (3.65-5.03) L 01/24/21 06:08 Hgb 9.3 gm/dl (10.1-14.3) L 01/24/21 06:08 Hct 28.6 % (30.3-42.9) L 01/24/21 06:08 MCV 86 fl (79-97) 01/24/21 06:08 MCH 28 pg (28-32) 01/24/21 06:08 MCHC 33 % (30-34) 01/24/21 06:08 RDW 20.2 % (13.2-15.2) H 01/24/21 06:08 Plt Count 333 K/mm3 (140-440) 01/24/21 06:08 Add Manual Diff Complete 01/24/21 06:08 Total Counted 100 01/24/21 06:08 Seg Neutrophils % Assistant Corporate Secretary 01/24/21 06:08 Seg Neuts % (Manual) 97.0 % (40.0-70.0) H 01/24/21 06:08 Band Neutrophils % 1.0 % 01/23/21 17:50 Lymphocytes % (Manual) 2.0 % (13.4-35.0) L 01/24/21 06:08 Monocytes % (Manual) 1.0 % (0.0-7.3) 01/24/21 06:08 Nucleated RBC % Not Reportable 01/24/21 06:08 Seg Neutrophils # Man 10.7 K/mm3 (1.8-7.7) H 01/24/21 06:08 Band Neutrophils # 0.0 K/mm3 01/24/21 06:08 Lymphocytes # (Manual) 0.2 K/mm3 (1.2-5.4) L 01/24/21 06:08 Abs React Lymphs (Man) 0.0 K/mm3 01/24/21 06:08 Monocytes # (Manual) 0.1 K/mm3 (0.0-0.8) 01/24/21 06:08 Eosinophils # (Manual) 0.0 K/mm3 (0.0-0.4) 01/24/21 06:08 Basophils # (Manual) 0.0 K/mm3 (0.0-0.1) 01/24/21 06:08 Metamyelocytes # 0.0 K/mm3 01/24/21 06:08 Myelocytes # 0.0 K/mm3 01/24/21 06:08 Promyelocytes # 0.0 K/mm3 01/24/21 06:08 Blast Cells # 0.0 K/mm3 01/24/21 06:08 WBC Morphology Not Reportable 01/24/21 06:08 Hypersegmented Neuts Not Reportable 01/24/21 06:08 Hyposegmented Neuts Not Reportable 01/24/21 06:08 Hypogranular Neuts Not Reportable 01/24/21 06:08 Smudge Cells Not Reportable 01/24/21 06:08 Toxic Granulation Not Reportable 01/24/21 06:08 Toxic Vacuolation Not Reportable 01/24/21 06:08 Dohle Bodies Not Reportable 01/24/21 06:08 Pelger-Huet Anomaly Not Reportable 01/24/21 06:08 Peg Rods Not Reportable 01/24/21 06:08 Platelet Estimate Consistent w auto 01/24/21 06:08 Clumped Platelets Not Reportable 01/24/21 06:08 Plt Clumps, EDTA Not Reportable 01/24/21 06:08 Large Platelets Not Reportable 01/24/21 06:08 Giant Platelets Not Reportable 01/24/21 06:08 Platelet Satelliting Not Reportable 01/24/21 06:08 Plt Morphology Comment Not Reportable 01/24/21 06:08 RBC Morphology Not Reportable 01/24/21 06:08 Dimorphic RBCs Not Reportable 01/24/21 06:08 Polychromasia Not Reportable 01/24/21 06:08 Hypochromasia Not Reportable 01/24/21 06:08 Poikilocytosis Not Reportable 01/24/21 06:08 Anisocytosis 1+ 01/24/21 06:08 Microcytosis Not Reportable 01/24/21 06:08 Macrocytosis Not Reportable 01/24/21 06:08 Spherocytes Not Reportable 01/24/21 06:08 Pappenheimer Bodies Not Reportable 01/24/21 06:08 Sickle Cells Not Reportable 01/24/21 06:08 Target Cells Not Reportable 01/24/21 06:08 Tear Drop Cells Not Reportable 01/24/21 06:08 Ovalocytes Not Reportable 01/24/21 06:08 Helmet Cells Not Reportable 01/24/21 06:08 [place] Bodies Not Reportable 01/24/21 06:08 [place] Rings Not Reportable 01/24/21 06:08 [place] Cells Not Reportable 01/24/21 06:08 Bite Cells Not Reportable 01/24/21 06:08 Crenated Cell Not Reportable 01/24/21 06:08 Elliptocytes Not Reportable 01/24/21 06:08 Acanthocytes (Spur) Not Reportable 01/24/21 06:08 Rouleaux Not Reportable 01/24/21 06:08 Hemoglobin C Crystals Not Reportable 01/24/21 06:08 Schistocytes Not Reportable 01/24/21 06:08 Malaria parasites Not Reportable 01/24/21 06:08 [place] Bodies Not Reportable 01/24/21 06:08 Hem Pathologist Commnt No 01/24/21 06:08 D-Dimer 413.40 ng/mlDDU (0-234) H 01/23/21 17:50 Sodium 135 mmol/L (137-145) L 01/24/21 06:08 Potassium 4.7 mmol/L (3.6-5.0) D 01/24/21 06:08 Chloride 86.8 mmol/L (98-107) L 01/24/21 06:08 Carbon Dioxide 26 mmol/L (22-30) 01/24/21 06:08 Anion Gap 27 mmol/L 01/24/21 06:08 BUN 24 mg/dL (7-17) H 01/24/21 06:08 Creatinine 1.5 mg/dL (0.6-1.2) H 01/24/21 06:08 Estimated GFR 35 ml/min 01/24/21 06:08 BUN/Creatinine Ratio 16 % 01/24/21 06:08 Glucose 159 mg/dL (65-100) H 01/24/21 06:08 Hemoglobin A1c 5.1 % (4-6) 01/24/21 06:08 Calcium 10.7 mg/dL (8.4-10.2) H 01/24/21 06:08 Total Bilirubin 0.30 mg/dL (0.1-1.2) 01/24/21 06:08 AST 17 units/L (5-40) 01/24/21 06:08 ALT 10 units/L (7-56) 01/24/21 06:08 Alkaline Phosphatase 104 units/L (35-129) 01/24/21 06:08 Troponin T < 0.010 ng/mL (0.00-0.029) 01/23/21 17:50 NT-Pro-B Natriuret Pep 5002 pg/mL (0-900) H 01/23/21 17:50 Total Protein 8.2 g/dL (6.3-8.2) 01/24/21 06:08 Albumin 4.4 g/dL (3.9-5) 01/24/21 06:08 Albumin/Globulin Ratio 1.2 % 01/24/21 06:08 Mueller/IV: Voiding Method External Female Catheter Active Medications - Current Medications Current Medications: Generic Name Dose Route Start Last Admin Trade Name Freq PRN Reason Stop Dose Admin Acetaminophen 650 mg 01/23/21 20:48 Acetaminophen 325 Mg Tab PO Q4H PRN Pain MILD(1-3)/Fever >100.5/AGRAWAL Hydrocodone Bitart/Acetaminophen 2 each 01/23/21 20:48 Hydrocodone/Acetaminophen 5-325 Mg Tab PO Q6H PRN Pain, Moderate (4-6) Albuterol 2.5 mg 01/24/21 06:48 Albuterol 2.5 Mg/3 Ml Nebu IH Q3HRT PRN Wheezing/ SOB Albuterol/Ipratropium 1 ampul 01/24/21 08:00 01/24/21 08:04 Ipratropium/Albuterol Sulfate 3 Ml Ampul.Neb IH 1 ampul QIDRT ISMAEL Administration Aspirin 81 mg 01/24/21 10:00 Aspirin Ec 81 Mg Tab PO QDAY [facility] Atorvastatin Calcium 40 mg 01/24/21 22:00 Atorvastatin 40 Mg Tab PO QHS ISMAEL Azithromycin 500 mg 01/24/21 10:00 Azithromycin 250 Mg Tab PO QDAY [facility] Protocol Carvedilol 6.25 mg 01/24/21 10:00 Carvedilol 6.25 Mg Tab PO BID ISMAEL Famotidine 20 mg 01/23/21 22:00 01/24/21 00:18 Famotidine 20 Mg/2 Ml Inj IV 20 mg BID ISMAEL Administration Hydralazine HCl 5 mg 01/23/21 21:59 Hydralazine 20 Mg/1 Ml Inj IV Q4HR PRN Hypertension Hydroxyzine Pamoate 25 mg 01/23/21 22:00 01/24/21 00:19 Hydroxyzine Pamoate 25 Mg Cap PO 25 mg BID ISMAEL Administration Levofloxacin/Dextrose 750 mg in 150 mls @ 100 mls/hr 01/24/21 10:00 Levaquin 750mg/150ml IV Q48HR [facility] Protocol Magnesium Hydroxide 30 ml 01/23/21 20:48 Magnesium Hydroxide (Mom) Oral Liqd Udc PO Q4H PRN Constipation Methylprednisolone Sodium Succinate 40 mg 01/23/21 23:00 01/24/21 07:30 Methylprednisolone Sod Succinate 40 Mg/1 Ml Inj IV 40 mg Q8HR ISMAEL Administration Metoclopramide HCl 10 mg 01/23/21 20:48 01/24/21 00:16 Metoclopramide 10 Mg/2 Ml Inj IV 10 mg Q6H PRN Administration Nausea And Vomiting Morphine Sulfate 4 mg 01/23/21 20:48 01/24/21 00:58 Morphine 4 Mg/1 Ml Inj IV 4 mg Q4H PRN Administration Pain , Severe (7-10) Naloxone HCl 0.1 mg 01/23/21 20:48 Naloxone 0.4 Mg/1 Ml Inj IV Q2MIN PRN Res Rate </= 8 or 02 SAT < 92% Ondansetron HCl 4 mg 01/23/21 20:48 Ondansetron 4 Mg/2 Ml Inj IV Q8H PRN Nausea And Vomiting Senna 8.6 mg 01/23/21 20:48 Sennosides 8.6 Mg Tab PO Q12HR PRN Constipation Sodium Chloride 10 ml 01/23/21 22:00 01/24/21 00:19 Sodium Chloride 0.9% 10 Ml Flush Syringe IV 10 ml BID ISMAEL Administration
[2021-01-24] MEDS ORDERED: AZITHROMYCIN 250 MG TAB PO SCH (10:00)
[2021-01-24] MEDS ORDERED: carvediloL 6.25 MG TAB PO SCH (10:00)
[2021-01-24] MEDS ORDERED: ASPIRIN EC 81 MG TAB PO SCH (10:00)
--- NOTE | 2021-01-24 12:52 | Consultation ---
History of Present Illness Consult date: 01/24/21 Requesting physician: ELIAN REYNA Reason for consult: COPD History of present illness: 65 y/o female smoker admitted with acute respiratory failure, required bipap briefly but since weaned off. I was consulted for COPD, however called by RT's this am as they are concerned about her airway and possible compromise. Patient is awake and alert and not in any apparent distress. Large mass on the right side of neck, about the size of a pomegranate. Per patient has been growing for about 7 months and wants it out. States she saw a physician about it but cannot tell me who Past History Past Medical History: COPD Social history: lives with family, smoking, alcohol abuse Family history: no significant family history Medications and Allergies Allergies Allergy/AdvReac Type Severity Reaction Status Date / Time ibuprofen [From Motrin] Allergy Rash Verified 01/06/21 18:28 sulfamethoxazole Allergy Rash Verified 01/06/21 18:28 [From Bactrim] trimethoprim [From Bactrim] Allergy Rash Verified 01/06/21 18:28 Penicillins AdvReac Mild Nausea Verified 01/06/21 21:21 Home Medications Medication Instructions Recorded Confirmed Last Taken Type hydrOXYzine PAMOATE (NF) [Vistaril 25 mg PO BID 09/17/13 08/01/14 09/17/13 History (Nf)] Albuterol Mdi (or & Nicu Only) 2 puff IH QID PRN 30 Days 08/02/14 Unknown Rx [ProAir HFA Inhaler] inhalation levoFLOXacin [Levaquin] 750 mg PO QDAY #3 tablet 08/02/14 Unknown Rx Acetaminophen [Tylenol] 325 mg PO Q6H PRN #30 capsule 11/05/20 Unknown Rx Azithromycin [Zithromax TAB] 250 mg PO QDAY #5 tablet 11/05/20 Unknown Rx Doxycycline Hyclate [Doxycycline 100 mg PO Q12HR 10 Days #20 tab 01/01/21 Unknown Rx Hyclate TAB] Prednisone [predniSONE 10 mg 10 mg PO .TAPER #1 tab.ds.pk 01/01/21 Unknown Rx (6-Day Pack, 21 Tabs)] Acetaminophen/Codeine [Tylenol 1 tab PO Q6H PRN #20 tab 01/06/21 Unknown Rx /Codeine # 3 tab] Active Meds: Active Medications Acetaminophen (Acetaminophen 325 Mg Tab) 650 mg PO Q4H PRN PRN Reason: Pain MILD(1-3)/Fever >100.5/AGRAWAL Hydrocodone Bitart/Acetaminophen (Hydrocodone/Acetaminophen 5-325 Mg Tab) 2 each PO Q6H PRN PRN Reason: Pain, Moderate (4-6) Last Admin: 01/24/21 10:51 Dose: 2 each Documented by: Albuterol (Albuterol 2.5 Mg/3 Ml Nebu) 2.5 mg IH Q3HRT PRN PRN Reason: Wheezing/ SOB Albuterol/Ipratropium (Ipratropium/Albuterol Sulfate 3 Ml Ampul.Neb) 1 ampul IH QIDRT [facility] Last Admin: 01/24/21 12:07 Dose: 1 ampul Documented by: Aspirin (Aspirin Ec 81 Mg Tab) 81 mg PO QDAY [facility] Last Admin: 01/24/21 10:51 Dose: 81 mg Documented by: Atorvastatin Calcium (Atorvastatin 40 Mg Tab) 40 mg PO QHS [facility] Azithromycin (Azithromycin 250 Mg Tab) 500 mg PO QDAY [facility]; Protocol Last Admin: 01/24/21 10:51 Dose: 500 mg Documented by: Carvedilol (Carvedilol 6.25 Mg Tab) 6.25 mg PO BID [facility] Last Admin: 01/24/21 10:51 Dose: 6.25 mg Documented by: Famotidine (Famotidine 20 Mg/2 Ml Inj) 20 mg IV BID [facility] Last Admin: 01/24/21 10:52 Dose: 20 mg Documented by: Hydralazine HCl (Hydralazine 20 Mg/1 Ml Inj) 5 mg IV Q4HR PRN PRN Reason: Hypertension Hydroxyzine Pamoate (Hydroxyzine Pamoate 25 Mg Cap) 25 mg PO BID [facility] Last Admin: 01/24/21 10:51 Dose: 25 mg Documented by: Levofloxacin/Dextrose (Levaquin 750mg/150ml) 750 mg in 150 mls @ 100 mls/hr IV Q48HR [facility]; Protocol Last Admin: 01/24/21 10:52 Dose: 100 mls/hr Documented by: Magnesium Hydroxide (Magnesium Hydroxide (Mom) Oral Liqd Udc) 30 ml PO Q4H PRN PRN Reason: Constipation Methylprednisolone Sodium Succinate (Methylprednisolone Sod Succinate 40 Mg/1 Ml Inj) 40 mg IV Q8HR [facility] Last Admin: 01/24/21 07:30 Dose: 40 mg Documented by: Metoclopramide HCl (Metoclopramide 10 Mg/2 Ml Inj) 10 mg IV Q6H PRN PRN Reason: Nausea And Vomiting Last Admin: 01/24/21 00:16 Dose: 10 mg Documented by: Morphine Sulfate (Morphine 4 Mg/1 Ml Inj) 4 mg IV Q4H PRN PRN Reason: Pain , Severe (7-10) Last Admin: 01/24/21 00:58 Dose: 4 mg Documented by: Naloxone HCl (Naloxone 0.4 Mg/1 Ml Inj) 0.1 mg IV Q2MIN PRN PRN Reason: Res Rate </= 8 or 02 SAT < 92% Ondansetron HCl (Ondansetron 4 Mg/2 Ml Inj) 4 mg IV Q8H PRN PRN Reason: Nausea And Vomiting Senna (Sennosides 8.6 Mg Tab) 8.6 mg PO Q12HR PRN PRN Reason: Constipation Sodium Chloride (Sodium Chloride 0.9% 10 Ml Flush Syringe) 10 ml IV BID [facility] Last Admin: 01/24/21 10:52 Dose: 10 ml Documented by: Review of Systems All systems: negative Physical Examination Vital signs: Vital Signs Temp Pulse Resp BP Pulse Ox 97.8 F 109 H 23 191/126 99 01/23/21 16:31 01/23/21 16:31 01/23/21 16:31 01/23/21 16:31 01/23/21 16:31 General appearance: no acute distress, alert, other (cachectic) Eyes: non-icteric ENT: oropharynx moist Neck: other (large mass on right sided of neck) Effort: normal Ascultation: Bilateral: diminished breath sounds, wheezes Results - Laboratory Findings CBC and BMP: 01/24/21 06:08 01/24/21 06:08 ABG ABG pH 7.392 (7.320-7.450) 01/24/21 09:03 POC ABG pCO2 39.6 mmHg (32.0-48.0) 01/24/21 09:03 POC ABG pO2 145.7 mmHg (83-108) H 01/24/21 09:03 POC ABG HCO3 23.5 01/24/21 09:03 ABG O2 Saturation 99.2 (0-100) 01/24/21 09:03 PT/INR, D-dimer D-Dimer 413.40 ng/mlDDU (0-234) H 01/23/21 17:50 Abnormal lab findings: Abnormal Labs 01/23/21 01/23/21 01/23/21 17:50 17:50 17:50 WBC 12.2 H RBC 3.37 L Hgb 9.4 L Hct 29.4 L RDW 20.3 H Seg Neuts % (Manual) 88.0 H Lymphocytes % (Manual) 8.0 L Seg Neutrophils # Man 10.7 H Lymphocytes # (Manual) 1.0 L D-Dimer 413.40 H POC ABG pO2 ABG Hemoglobin ABG Oxyhemoglobin ABG Sodium ABG Chloride ABG Glucose Sodium 134 L Chloride 85.9 L Carbon Dioxide 20 L BUN Creatinine Glucose 105 H Calcium 10.7 H NT-Pro-B Natriuret Pep 5002 H Arterial Blood Glucose 01/24/21 01/24/21 01/24/21 06:08 06:08 09:03 WBC RBC 3.31 L Hgb 9.3 L Hct 28.6 L RDW 20.2 H Seg Neuts % (Manual) 97.0 H Lymphocytes % (Manual) 2.0 L Seg Neutrophils # Man 10.7 H Lymphocytes # (Manual) 0.2 L D-Dimer POC ABG pO2 145.7 H ABG Hemoglobin 9.2 L ABG Oxyhemoglobin 98.6 H ABG Sodium 133.2 L ABG Chloride 91.0 L ABG Glucose 169 H Sodium 135 L Chloride 86.8 L Carbon Dioxide BUN 24 H Creatinine 1.5 H Glucose 159 H Calcium 10.7 H NT-Pro-B Natriuret Pep Arterial Blood Glucose 169 H - Diagnostic Findings Chest x-ray: image reviewed (clear, hyperinflation consistent with air trapping.) Assessment and Plan 65 y/o female with acute respiratory failure secondary to COPD exacerbation and potential airway compromise from large right sided neck mass. 1. Fine with current dose of IV steroids, however pending results of neck CT may need to increase to higher doses 2. Will add pulmicort to scheduled duoneb treatments 3. Minimize fluid to prevent volume overload 4. Suggest nicotine patch to help with smoking cravings 5. Stat Neck CT to evaluate mass and airway, unable to give contrast now that she has developed renal insufficiency overnight. Will continue to follow, no ENT at this hospital so may need transfer.
--- NOTE | 2021-01-24 14:24 | Cat Scan Report ---
CT NECK WITHOUT INTRAVENOUS CONTRAST CLINICAL HISTORY: right sided neck mass, concern for airway TECHNIQUE: 2.5 mm thick contiguous axial scans were obtained from the skull base down to the aortic arch. in add ition to evaluation of axial source images sagittal and coronal multiplanar reconstructions were prod uced and reviewed for this report. All CT imaging studies performed at this facility utilize dose modulation, iterative reconstruction o r weight based dosing, if appropriate, to obtain the lowest achievable radiation dose. COMPARISON: CT neck with contrast 01/06/2021 and 01/01/2021.. FINDINGS: AIRWAY: Again demonstrated is a large right-sided supraglottic mass lesion in the larynx. The lumen o f the airway is displaced to the left and is significantly narrowed. Similar findings were present on examination dated 01/06/2021. No additional abnormalities are seen along the course of the airway. Na sopharynx, oropharynx and visualized portions of the subglottic airway all have an unremarkable appea suzie. LYMPH NODES: A large conglomerate sujata mass is again demonstrated in the right neck unchanged from r ecent previous study. ORAL CAVITY/FLOOR OF MOUTH: No abnormalities are seen in evaluation of the oral cavity and tongue. Th e floor the mouth has a normal appearance. MAJOR SALIVARY GLANDS: The parotid and submandibular salivary glands have a normal appearance. NASAL CAVITY AND PARANASAL SINUSES: Evaluation of the nasal cavity reveals no abnormality. The parana carmen sinuses are free from inflammatory mucosal disease. ORBITS:No abnormalities of the visualized portions of the orbits are identified. Globes, optic nerves , extraocular muscles and lacrimal glands have an unremarkable appearance. THYROID GLAND: The thyroid gland is normal in size. Several thyroid calcifications are identified. No indication of thyroid mass or cyst is observed. TEMPORAL BONES:Mastoid air cells are normally pneuma tized. CERVICAL SPINE: Evaluation of the cervical spine advanced cervical spondylosis with central canal sunni nosis at C4-5 and C5-6 levels and widespread neuroforaminal stenosis. LUNG APICES: Evaluation of the lung apices reveals pleural and parenchymal fibrotic change at both jamey ng apices (right worse than left most ). In addition extensive bullous changes are seen at the lung a pices. These findings are stable. There Is no indication of lung nodule or infiltrate. The visualized portions of the superior mediastinum have an unremarkable appearance. IMPRESSION: 1. Severe narrowing of the supraglottic airway. 2. 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 IMPORTANT FINDING: Time of Communication (COMMUNITY RELATIONS SPECIALIST/CDT): 1315 Central standard time Licensed Practitioner Receiving Report: Bola, the patient's nurse at [facility] The issue of severe airway compromise was discussed. A read back was performed Signer Name: David Molina MD Signed: 01/24/2021 2:19 PM Workstation Name: [id number]
--- NOTE | 2021-01-24 14:45 | Event Note ---
Date: 01/24/21 Patient has a very severely compromised airway. She needs emergent attention now. This institution does not have ENT and we are actively attempting to transfer her. When compared to her prior CT from 01/06 ( I did not know she was in the ed for neck mass/swelling) shows similar findings but with the presence of stridor now with hoarseness, I am very uncomfortable with this. Also, she could not be intubated orally or nasally based on where this lesion is and should be moved to a center with ENT as well as thoracic surgery. Spoke with [facility] who are working on transfer. Clinically stable but very, very high potential for acute quick decompensation.
--- NOTE | 2021-01-24 15:03 | Event Note ---
Called [facility] transfer line, spoke to Lin. She promise to call me back
--- NOTE | 2021-01-24 16:18 | Event Note ---
Date: 01/24/21 Called [facility]. She says they are on diversion, only accepting trauma or mathews.
--- NOTE | 2021-01-24 17:44 | Event Note ---
Date: 01/24/21 [address] [facility] [address] to [address]. Dumont, ENT and Hospitalist. Patient has been accepted but has to wait for bed. Dr. Dumont requested Covid-19 test. Ordered.
--- NOTE | 2021-01-24 19:17 | Discharge Summary ---
Providers - Providers Date of Admission: 01/23/21 19:00 Date of discharge: 01/24/21 Attending physician: USMAN EDGE 01/24/21 03:04 Consult to Dietitian/Nutrition [CONS] Routine Physician Instructions: Reason For Exam: Reason for Consult: Pt needs oral supplement 01/24/21 06:39 Consult to Physician [CONS] Routine Comment: Consulting Provider: JOSE MIGUEL LOPEZ Physician Instructions: Reason For Exam: COPD Primary care physician: DONOR SERVICES TECHNICIAN Hospitalization Condition: Serious Hospital course: This is a 65-year-old female presents to the emergency department via EMS from home with a complaint of worsening shortness of breath, wheezing, and coughing times 4 days. Patient denies any fever, chest pain, abdominal pain, lower extremity swelling. She has a past medical history of asthma, COPD. patient is not on home oxygen. patient also has hx of diabetes, hypertension, PUD, and "lymph node cancer." Patient has a large mass to the right side of the neck and she says that she has "2 stents in my neck. Patient admits tobacco use, but denies any illicit drug use. Patient is vaccinated for COVID-19. Patient is poor historian , has shortness of breath so cannot obtain detailed history. She was diagnosed with throat cancer and had some treatment about 3 months ago but cannot give details, cannot tell me name of facility or Physician but says she did not follow with Oncologist. Patient has a 4-5 cm visible mass right neck. She was admitted. 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 Salesperson Furs [facility] since E[facility] service not available here. I called [facility] and discussed with Dr. Dumont, ENT and Hospitalist. She has been accepted at [facility] pending bed availability. Of note, she has been seen in ED 2 times within past [address] neck done before, but the CT Neck done today shows severe airway obstruction. Patient subsequently transferred to [facility] night of 01/24/21. Disposition: 02 SHORT TERM [facility]OSP[facility] Final Discharge Diagnosis (Prints w/discharge instructions): 1.Acute respiratory distress from airway obstruction. 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 Time spent for discharge: 45 mins - Discharge Diagnoses (1) Acute respiratory failure Status: Acute (2) Airway obstruction Status: Acute (3) COPD exacerbation Status: Acute (4) Palpable mass of neck Status: Acute (5) ZOË (acute kidney injury) Status: Acute (6) Lymphadenopathy of head and neck Status: Acute Comment: Metastatic (7) Laryngeal cancer Status: Acute Core Measure Documentation - Palliative Care Palliative Care/ Comfort Measures: Not Applicable - Core Measures Any of the following diagnoses?: none Exam - Constitutional Vitals: Temp Pulse Resp BP Pulse Ox 98.8 F 82 16 168/98 94 01/24/21 16:09 01/24/21 16:38 01/24/21 16:38 01/24/21 16:09 01/24/21 16:09 Plan Follow up with: PRIMARY CAREMD [Primary Care Provider] - 3-5 Days
[2021-01-24 20:08] VITALS: BP 177/122
--- NOTE | 2021-01-26 10:38 | Electrocardiograph Report ---
[facility] Test Date: 2021-01-23 Test Time: 19:40:44 Pat Name: UTE SIFUENTES Department: Room: A454 Gender: F Research Technologist: VERONICA : [id number] Requested By: BILL QUINTERO Order Number: [id number] Reading MD: Aime Salinas Measurements Intervals [place] Rate: 102 P: 84 NH: 147 QRS: 82 QRSD: 102 T: -10 QT: 366 QTc: 477 Interpretive Statements Sinus tachycardia Biatrial enlargement LVH with secondary repolarization abnormality No previous ECG available for comparison Electronically Signed On 01-26-2021 10:38:02 EDT by Aime Salinas
== END 2021-01-24 21:30 | disposition short-term general hospital (02) | DRG 189 ==
LOC: ED 16:30 → 4A 19:00
PROVIDERS: ADMIT Internal Medicine; ATTEND Internal Medicine
PROC: 4A033R1 Measurement of Arterial Saturation, Peripheral, Percutaneous Approach (ICD-10-PCS; principal; 2021-01-24)
PROC: 5A09357 Assistance with Respiratory Ventilation, Less than 24 Consecutive Hours, Continuous Positive Airway Pressure (ICD-10-PCS; 2021-01-24)
DX: J96.01 Acute respiratory failure with hypoxia (principal); J44.1 Chronic obstructive pulmonary disease with (acute) exacerbation; N17.0 Acute kidney failure with tubular necrosis; I16.0 Hypertensive urgency; I50.9 Heart failure, unspecified; F17.200 Nicotine dependence, unspecified, uncomplicated; R22.1 Localized swelling, mass and lump, neck; E11.9 Type 2 diabetes mellitus without complications; I11.0 Hypertensive heart disease with heart failure; C32.1 Malignant neoplasm of supraglottis; Z87.11 Personal history of peptic ulcer disease; Z88.0 Allergy status to penicillin; Z79.899 Other long term (current) drug therapy
CPT/HCPCS: 36415; 36600; 70490; 71045; 78580; 80053; 82805; 83036; 83880; 84484; 85007; 85025; 85379; 87641; 93005; 94640; 94644; 99285; 99406; G0378; A9540; J0360; J1956; J2270; J2765; J2920; J3475; Q0177